=== PATIENT | male | born 1945 | race Caucasian/White ===

== ENCOUNTER → 2016-04-29 | Day surgery (SDC) | payer OTHER ==
[~2016-04-29] VITALS: Ht 172.7 cm; Wt 58.0 kg
[~2016-04-29] MED LIST: ACETAMINOPHEN 325 MG TAB PO PRN; ALBU18002 INH; AMOX875T PO; ATRINS INH; ATRINS NEB; ATROPINE SULFATE 0.1 MG/ML 5ML SYR IV PRN; DXY100 PO; DiphenhydrAMINE HCL 50 MG/ML VIAL ONE; FENTANYL CITRATE INJ 50 MCG/1 ML 2 ML VIAL ONE; GFNSR600 PO; IPRA1AER2 INH; MIDAZOLAM HCL 1 MG/ML 2ML VIAL ONE; MULT-589 PO; ONDANSETRON INJ 2 MG/ML 2 ML VIAL IV PRN; OXGN; PATIENT'S ALLERGY INFO NEEDS ENTERED SCH; PRED10TA PO; PRED20TA PO; PRT40 PO; PRVHFAIN; ROFL1TAB5 PO; SODIUM CHLORIDE 0.9% 1000ML 1,000 ML IV SCH; SODIUM CHLORIDE 0.9% 1000ML 250 ML IV PRN; UMEC1AER; UMEC1AER INH; XPNINS1255 INH
[2016-04-29 07:43] VITALS: BP 152/101; PULSE 82; TEMP 36.5; O2SAT 92; Ht 172.7 cm; Wt 58.0 kg
--- NOTE | 2016-04-29 09:27 | History & Physical Bridge Note ---
H&P Re-Evaluation Bridge Note: I have examined the patient, reviewed the History & Physical and in the interval since the performance of the History & Physical I have noted the following changes of clinical significance: No changes noted
--- NOTE | 2016-04-29 09:39 | Cardiac Catheterization ---
Procedure Note Procedure Date Apr 29, 2016. Pre-Procedure Diagnosis Valvular Disease AUC Score 9 Post-Procedure Diagnosis Normal Coronary Arteries Procedure(s) Performed Coronary Angiography, Left Heart Cath, Right Heart Cath, LV Angiography, Aortography [employer] Dr. Patten Recruitment Officer(s) None Estimated Blood Loss None Medication(s) Versed, Diphenhydramine Summary of Findings Severe aortic stenosis, normal coronaries Hemodynamics Rest Ao: 155/88 Final Ao: 150/89 LV: 200/16 RA: 5 RV: 35/5 PA: 12 PW: 12 Recommendations valve replacement Specimens None Radiation Exposure (mGy) 998 Contrast (mls) 127 Fluids (cc crystalloids) 109 Procedural Complication(s) None Disposition Polisher Hand Holding/Recovery ACC Data Cardiac Status Clinical evaluation leading to the procedure CAD Presntation: Stable angina Anginal Classification: CCS II Heart Failure: No Cardiogenic Shock w/in 24Hrs: No Cardiac Arrest w/in 24Hrs: No Imaging studies past 6 months: Yes Stress studies past 6 months: No Standard Exercise Stress Test: No Stress Echocardiogram: No Stress Testing w/SPECT MPI: No Cardiac CTA: No Coronary Anatomy Dominant: Right Left Main (% Stenosis): Normal LAD (% Stenosis): Normal Circumflex (% Stenosis): Normal RCA (% Stenosis): Normal Left Ventricular Angiography EF (%): 60 Mitral Regurgitation: None Aortography Aortic Regurgitation: None Diagnostic Physician's Name: Lavon Patten, Status: Elective Closure Device Percutaneous Entry Location: Femoral Closure Device: none - manual hold Recommendations: valve replacement
--- NOTE | 2016-04-29 09:41 | Discharge Instructions ---
Discharge Instructions Procedure Procedure Date: Apr 29, 2016. Reason for Visit: Chest Pain Dr Patten To Do. Discharge Discharge Date: Apr 29, 2016. Discharge Diagnosis: aortic stenosis Last Recorded Wt (Kilograms): 58 Anesthesia Post Anesthesia Instructions: If you have had General Anesthesia or IV Sedation: * Do not drive today. * Resume driving when surgeon permits. * Do not make important decisions or sign legal documents today. * Call surgeon for: 1. Temperature elevations greater than 101 degrees F. 2. Uncontrollable pain. 3. Excessive bleeding. 4. Persistent nausea and vomiting. 5. Medication intolerance (nausea, vomiting or rash). * For nausea and vomiting use only clear liquids such as: tea, soda, bouillon until nausea subsides, then gradually increase diet as tolerated. * If you have any concerns or questions, call your surgeon's office. If physician is unavailable and it is an emergency, call 911 or go to the nearest emergency room. Instructions Activity Recommendations: limitations Recommended Home Diet: resume previous diet Provider Instructions ACTIVITY RECOMMENDATIONS: It is common to feel weak and fatigue for a few days. * Do not drive or operate any motorized equipment for the next three days. * Limit stair usage (2 or 3 trips a day only) for the next three days. * Do not lift anything heavier than 10 pounds for the next three days. * Do not engage in vigorous exercise or any sports for the next five days. * You may shower the day after your procedure, but do not immerse the area for three days. Cleanse the site gently with soap and water. SPECIAL CARE INSTRUCTIONS: * You may replace the pressure dressing or band-aid the morning after the procedure. * After your procedure, it is normal to have a small bruise or small lump at the site. Examine your site daily for any change in the bruise or lump, redness, swelling, drainage or numbness. Notify your doctor if any change. BLEEDING: * If there is a small amount of bleeding at the site, lie down and apply firm pressure with a clean cloth for ten minutes. When the bleeding stops, lie quietly keeping the procedure limb straight for six hours. Notify your doctor as soon as possible. * If the bleeding does not stop after ten minutes or if there is a large amount of bleeding or spurting, call 911 immediately. Continue to lie down and hold firm pressure until help arrives. SKIN IRRITATION: * You may experience some redness and/or swelling in the area where radiation was administered. If any skin irritation occurs, please contact your family physician. FOLLOW UP VISIT: Keep any scheduled doctor appointments. Follow Up Rachael Clements Recommendations: Call your doctor if: * Temperature above 101 degrees * Pain not relieved by pain medicine ordered * There is increased drainage or redness from any incision * You have any unanswered questions or concerns. Your Doctors Instructions noted above were prepared by provider Lavon Patten. Patient Signature Section: Patient Instructions Signature Page [place] Patient (or Guardian) Signature/Date: I have read and understand the instructions given to me by my caregivers. Caregiver/RN/Doctor Signature/Date: The above-named patient and/or guardian has received patient instructions on this date. + Original Patient Signature Page (only) stays with chart. Please make copy for patient.
[2016-04-29 09:46] LABS: ISTAT ARTERIAL BLOOD GAS HCO3 28 meq/L (19-24); ISTAT ARTERIAL BLOOD GAS PCO2 42 mmHg (35-46); ISTAT ARTERIAL BLOOD GAS PO2 60 mmHg (80-95); ISTAT ARTERIAL BLOOD GAS pH 7.43 (7.35-7.45); ISTAT CARBON DIOXIDE 29 mEq/l (24-31)
--- NOTE | 2016-04-29 10:12 | CARDIAC CATH REPORT ---
PROCEDURES: 1. Left heart catheterization. 2. Right heart catheterization. 3. Coronary angiography. 4. Left ventriculography. 5. Aortography. HISTORY OF PRESENT ILLNESS: The patient is a 71-year-old with a history of COPD on the basis of smoking and industrial exposure. He has chronic bronchitis and has had at least 2 episodes, 1 requiring hospital admission for this winter due to acute exacerbation of his COPD. He also was found on echocardiography to have severe calcific aortic stenosis. PROCEDURE SUMMARY: The patient was seen and evaluated in the holding area of the stores laborer. After informed consent was obtained, the patient was taken to the cardiac catheterization lab where he was prepped and draped in the usual manner for a right transfemoral approach. Preformed diagnostic catheters were utilized for the coronary angiograms. A multipurpose catheter was utilized to cross the aortic valve after multiple attempts with pigtail catheter were unsuccessful. A hand injection was then performed with the multipurpose catheter for the LV gram. The multipurpose catheter then was switched for a pigtail catheter and an aortogram was performed. Right heart pressures and cardiac outputs were performed with a [place] catheter. Following the procedure due to the patient's body habitus manual hold performed to remove the arterial and venous sheaths. The patient then was returned to the holding area of the stores laborer in stable condition. HEMODYNAMIC DATA: The right atrial pressure is a mean of 5 mmHg, right ventricular pressure is 32/5 mmHg. The pulmonary artery pressure is 28/11 mmHg. The pulmonary capillary wedge pressure is a mean of 12 mmHg. The LV pressure is 191 mmHg. Central aortic pressure is 162/87 mmHg. The estimated mean gradient across the aortic valve is 30.95 mmHg. The estimated aortic valve area is 0.5-0.84 cm2. The cardiac output by thermal dilution is 4.7 liters per minute. LEFT VENTRICULOGRAM: The left ventricle was normal size with normal systolic function during a hand injection. AORTOGRAM: The aortic root and ascending aorta have normal size and morphology. The aortic valve is heavily calcified. CORONARY ANGIOGRAPHY: Selective injections of the left coronary artery revealed the left main trunk to be widely patent. There is a ramus branch from the LAD or left main trunk which is widely patent. The LAD itself extends to the apex of the heart. The LAD is smooth in appearance, widely patent, and within normal limits. The left circumflex artery consists principally of several lateral marginal branches. The left circumflex artery is smooth in appearance, widely patent, and within normal limits. Selective injections of the right coronary artery revealed to be dominant. The right coronary artery is smooth in appearance, widely patent, and within normal limits. SUMMARY: The patient has severe calcific aortic stenosis. The coronary arteries are within normal limits and he has normal LV function. RECOMMENDATIONS: Due to the patient's history of severe underlying lung pathology he is not a candidate for open heart surgery with valve replacement. He may be a candidate for MELANIE and we will have him evaluated.
[2016-04-29 11:35] LABS: ISTAT ARTERIAL BLOOD GAS HCO3 33 meq/L (19-24); ISTAT ARTERIAL BLOOD GAS PCO2 51 mmHg (35-46); ISTAT ARTERIAL BLOOD GAS PO2 < 32 mmHg (80-95); ISTAT ARTERIAL BLOOD GAS pH 7.41 (7.35-7.45); ISTAT CARBON DIOXIDE 34 mEq/l (24-31)
[2016-04-29 13:30] VITALS: BP 158/91; PULSE 80; O2SAT 97
== END | disposition home or self-care (01) ==
LOC: C.CATH 07:08
PROVIDERS: ATTEND Internal Medicine Interventional Cardiology
DX: I35.0 Nonrheumatic aortic (valve) stenosis (principal); J98.4 Other disorders of lung; J44.9 Chronic obstructive pulmonary disease, unspecified; F17.200 Nicotine dependence, unspecified, uncomplicated

== ENCOUNTER 2016-09-21 02:49 | Inpatient (IN) | payer OTHER ==
[2016-09-21] VITALS (11 sets, daily range): BP systolic 103–132; BP diastolic 70–79; PULSE 89–99; TEMP 36.5–37; O2SAT 93–98; Ht 170.2 cm; Wt 57.6 kg
[~2016-09-21] VITALS: Ht 170.2 cm; Wt 57.6 kg
[~2016-09-21 02:49] MED LIST changes: -ACETAMINOPHEN 325 MG TAB PO PRN; -ATRINS INH; -ATROPINE SULFATE 0.1 MG/ML 5ML SYR IV PRN; -DXY100 PO; -DiphenhydrAMINE HCL 50 MG/ML VIAL ONE; -FENTANYL CITRATE INJ 50 MCG/1 ML 2 ML VIAL ONE; -GFNSR600 PO; -IPRA1AER2 INH; -MIDAZOLAM HCL 1 MG/ML 2ML VIAL ONE; -MULT-589 PO; -ONDANSETRON INJ 2 MG/ML 2 ML VIAL IV PRN; -OXGN; -PATIENT'S ALLERGY INFO NEEDS ENTERED SCH; -PRED10TA PO; -PRT40 PO; -PRVHFAIN; -ROFL1TAB5 PO; -SODIUM CHLORIDE 0.9% 1000ML 1,000 ML IV SCH; -SODIUM CHLORIDE 0.9% 1000ML 250 ML IV PRN; -UMEC1AER; -XPNINS1255 INH
[2016-09-21] MEDS ORDERED: NITROGLYCERIN 0.4 MG SL PER TAB CHARGE SL PRN (04:45)
[2016-09-21] MEDS ORDERED: PRVHFAIN (04:59)
[2016-09-21] MEDS ORDERED: UMEC1AER (04:59)
[2016-09-21] MEDS ORDERED: IPRA1AER2 INH (04:59)
[2016-09-21] MEDS ORDERED: TRAMADOL HCL 50 MG TAB PO PRN (05:00)
[2016-09-21] MEDS ORDERED: ONDANSETRON INJ 2 MG/ML 2 ML VIAL IV PRN (05:00)
[2016-09-21] MEDS ORDERED: MoRPHine SULFATE 2 MG/ML CARP IV PRN (05:00)
[2016-09-21] MEDS ORDERED: ROFL1TAB5 PO (05:00)
[2016-09-21] MEDS ORDERED: OXGN (05:00)
[2016-09-21 05:58] LABS: BASO % 0.4 %; BASO ABS # 0.03 K/uL (0-0.2); COMPLETE YES; EOS % 1.1 %; HEMATOCRIT 41.7 % (42-52); IG% 0.3 %; MEAN CORPUSCULAR HEMOGLOBIN 31.4 pg (25-34); MEAN CORPUSCULAR HGB CONC 33.1 g/dl (32-36); MEAN PLATELET VOLUME 9.8 fL (7.4-10.4); MONO % 1.4 %; NEUT % 91.8 %; PLATELET COUNT 239 K/uL (130-400); RED BLOOD COUNT 4.39 M/uL (4.7-6.1); WHITE BLOOD COUNT 7.95 K/uL (4.8-10.8)
[2016-09-21 06:04] LABS: ARTERIAL BLD GAS O2 SATURATION 96.1 % (90-95); ARTERIAL BLOOD GAS BASE EXCESS 1.9 mEq/L (-9-1.8); ARTERIAL BLOOD GAS HCO3 27 mmol/L (19-24); ARTERIAL BLOOD GAS PO2 81 mm/Hg (80-95); ARTERIAL BLOOD GAS pH 7.42 (7.35-7.45)
[2016-09-21] MEDS ORDERED: LEVALBUTEROL/IPRATROPIUM NEB INH STA (06:04)
[2016-09-21 06:05] LABS: ALLEN TEST POS (POS); O2 ADMINISTRATION 4L
[2016-09-21] MEDS ORDERED: DOXYCYCLINE HYCLATE 100 MG CAP PO ONE (06:05)
[2016-09-21] MEDS ORDERED: METHYLPREDNISOLONE IV 40 MG in SYRINGE 0 ML IV STA (06:06)
[2016-09-21] MEDS ORDERED: IPRATROPIUM BROMIDE NEB SOLN 0.02% 2.5 ML VIAL INH STA (06:07)
[2016-09-21] MEDS ORDERED: LEVALBUTEROL 1.25MG/0.5ML NEB INH STA (06:07)
[2016-09-21] MEDS ORDERED: THIAMINE HCL INJ 100 MG in SYRINGE 9 ML IV STA (06:08)
[2016-09-21] MEDS ORDERED: LEVALBUTEROL/IPRATROPIUM NEB INH PRN (06:15)
[2016-09-21] MEDS ORDERED: LORAZEPAM 2 MG/ML 1 ML VIAL IV PRN (06:15)
[2016-09-21] MEDS ORDERED: IPRATROPIUM BROMIDE NEB SOLN 0.02% 2.5 ML VIAL INH PRN (06:15)
[2016-09-21] MEDS ORDERED: LEVALBUTEROL 1.25MG/0.5ML NEB INH PRN (06:15)
[2016-09-21] MEDS ORDERED: GABAPENTIN 600 MG TAB PO STA (06:16)
[2016-09-21 06:22] LABS: PARTIAL THROMBOPLASTIN RATIO 1.4
[2016-09-21 06:29] LABS: BUN/CREATININE RATIO 16.9 (10-20); CALCIUM 8.7 mg/dl (8.5-10.1); CREATININE 0.59 mg/dl (0.60-1.40); MAGNESIUM 2.3 mg/dl (1.8-2.4); POTASSIUM 4.1 mmol/L (3.5-5.1)
[2016-09-21 06:42] LABS: INR 0.9 (0.9-1.1); PROTHROMBIN TIME (PATIENT) 10.1 SECONDS (9.0-12.0)
[2016-09-21 06:56] LABS: THYROID STIMULATING HORMONE 0.316 uIu/ml (0.300-4.500)
[2016-09-21] MEDS: LEVALBUTEROL 1.25MG/0.5ML NEB INH SCH ×3 (07:00→19:10)
[2016-09-21] MEDS: IPRATROPIUM BROMIDE NEB SOLN 0.02% 2.5 ML VIAL INH SCH ×3 (07:00→19:10)
--- NOTE | 2016-09-21 07:04 | DIAGNOSTIC IMAGING REPORT ---
CHEST ONE VIEW PORTABLE CLINICAL HISTORY: sob COMPARISON STUDY: Outside radiograph dated 09/21/2016 FINDINGS: There is underlying pulmonary emphysema. The heart is normal in size. There is no failure. There is no focal pulmonary consolidation. There is a stable area of scarring at the left lung base. No pleural effusions are visualized.[ IMPRESSION: Emphysema. No acute findings. Electronically signed by: Foster Sanches M.D. 09/21/2016 7:03 AM Dictated Date/Time: 09/21/2016 7:03 AM
[2016-09-21] MEDS: GUAIFENESIN 600 MG TABCR PO SCH ×2 (07:46→19:54)
[2016-09-21] MEDS: ROFLUMILAST 500 MCG TAB PO SCH (07:46)
[2016-09-21] MEDS: MULTIVITAMIN TAB PO SCH (07:46)
[2016-09-21] MEDS: ASPIRIN 81 MG ECTAB PO SCH (07:46)
[2016-09-21] MEDS: NICOTINE 14 MG/24 HR TDSY TD SCH (07:47)
--- NOTE | 2016-09-21 08:04 | HISTORY & PHYSICAL EXAMINATION ---
DATE OF ADMISSION: 09/21/2016 PRIMARY CARE DOCTOR: Dr. Dean CHIEF COMPLAINT: Shortness of breath and abnormal troponin. History was obtained from patient and records. HISTORY OF PRESENT ILLNESS: Medical history is significant for chronic hypoxemic respiratory failure 2 to COPD on home O2, ongoing tobacco abuse, daily alcohol intake, bucuspid aortic stenosis as per records, AAA, hx asbestos exposure. In the last week, patient's breathing was acting up, had increasing shortness of breath, dry cough, unable to expectorate and some chest heaviness, nonradiating. Patient was seen at [facility]. Noted to be tachypneic, O2 sats 94/4L Troponin was noted to be 0.40. EKG showed sinus tachycardia, TW flattening in the inferior leads. Possible non-ST elevation MD as per ER MD. Patient wanted to be transferred to a hospital where his [facility] clockmaker practices. Patient was given statin, weight-based Lovenox before leaving [facility]. MEDICAL HISTORY: As above. Normal coronaries on April 2016 cardiac catheterization. 2D echo from May 2016 showed congenital bicuspid aortic valve, severe EF of 55%, mild TR, normal right ventricular systolic function Not a candidate for TAVR as per [place] [facility] [place]Dr. Venu Black). AAA measurement in November 2015; 2.5 x 3 largest dimension. HOME MEDICATIONS: Include; Z-Abel Rescue, Combivent p.r.n. and aspirin daily. ALLERGIES: No known drug allergies. FAMILY HISTORY: Heart disease. PERSONAL AND SOCIAL HISTORY: half pack daily. Daily alcohol intake. 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 REVIEW OF SYSTEMS: As per HPI, all other ROS negative. PHYSICAL EXAMINATION: VITAL SIGNS: Blood pressure was noted to be 111/77 pulse rate 94, respiratory rate 22, temperature 36.5 and sats 94 on 4 liters. GENERAL: Noted to be in minimal respiratory distress. Tremulous SKIN : normal color HEENT: [place] palpebral conjunctivae. Dry mucosa. NECK: No JVD. Supple. CHEST: Decreased breath sounds. Occasional wheeze. HEART: Regular rate and rhythm. Systolic murmur. ABDOMEN: Some distension, nontender. EXTREMITIES: No edema, no tenderness. NEUROLOGIC: No gross focality except for tremors. LABORATORIES: Hemoglobin was noted to be 13.8, hematocrit 41, white cell count 7.9 and platelets 239. Sodium 140, potassium 4.1, chloride 106, CO2 28, BUN 10, creatinine 0.5 and glucose 110. Troponin was 0.423. Chest x-ray as per my interpretaton : COPD. ASSESSMENT: 1. Acute on chronic hypoxemic respiratory failure secondary to chronic obstructive pulmonary disease exacerbation no sepsis 2. troponinemia secondary to above doubt acute coronary syndrome 3. ongoing tobacco abuse 4. hx severe , px not a candidate for TAVR as per [place] [facility] [place] 5. hx AAA 6. Daily alcohol intake. 7. Malnutrition (low BMI) PLAN: PCU, supplemental O2 baseline ABG Doxycycline, nebs, steroids. May need Pulmonary consult if without improvement. DT precautions. nicotine patch Nutrition consult DVT prophylaxis. Lovenox subQ Full code. MTDD
[2016-09-21 08:05] LABS: ALKALINE PHOSPHATASE 71 U/L (45-117); ALT/SGPT 20 U/L (12-78); AST/SGOT 19 U/L (15-37)
[2016-09-21] MEDS: GABAPENTIN 600MG Q6H DOSE PO SCH ×2 (11:12→17:18)
[2016-09-21] MEDS ORDERED: LEVALBUTEROL/IPRATROPIUM NEB INH SCH (12:00)
[2016-09-21 16:24] LABS: CKMB/CK RATIO 2.1 (0-3.0)
--- NOTE | 2016-09-21 17:20 | ECHOCARDIOGRAM REPORT ---
*NOTICE TO RECEIVING DEMOCRAT AGENCY This information is strictly Confidential and protected under [place] law. [place] law prohibits you from making any further disclosure of this information unless further disclosure is expressly permitted by the written consent of the person to whom it pertains or is authorized by law. A general authorization for the release of medical or other information is not sufficient for this purpose. Hospital accepts no responsibility if the information is made available to any other person, INCLUDING THE PATIENT. Interpretation Summary * Name: LEON KENNY Study Date: 09/21/2016 03:53 PM BP: 115/79 mmHg * Patient Location: C.2T\S\S235\S\1 HR: 96 * : 1945 (M/d/yyyy) Gender: Male Height: 67 in * Age: 71 yrs Ethnicity: CA Weight: 125 lb * Ordering Physician: Joanie Troy * Referring Physician: Self, Referred * Performed By: Alla Hart RDCS * * Reason For Study: Chest pain * BSA: 1.7 m2 * The study was technically adequate. * -- Conclusions -- * There is mild concentric left ventricular hypertrophy. * No regional wall motion abnormalities noted. * The left ventricle is hyperdynamic. * The LV Ejection Fraction = >70 %. * The right ventricle is normal in size and function. * The aortic valve is severely calcified. * Visualization is inadequate to allow determination of number of aortic valve leaflets. * Severe valvular aortic stenosis is present. * Grade I diastolic dysfunction, (abnormal relaxation pattern). * Trivial tricuspid regurgitation is present. The TR jet is therefore insufficient to estimate the pulmonary artery systolic pressure. * There is no 2D evidence of pulmonary hypertension. Procedure Details * A complete two-dimensional transthoracic echocardiogram was performed (2D, M-mode, Doppler and color flow Doppler). Left Ventricle * The left ventricle is normal in size. * There is mild concentric left ventricular hypertrophy. * The left ventricle is hyperdynamic. * Ejection Fraction = >70 %. * The left ventricular wall motion is normal. * No regional wall motion abnormalities noted. Right Ventricle * The right ventricle is normal in size and function. * The right ventricular systolic function is normal as assessed by tricuspid annular plane systolic excursion (TAPSE) (normal >1.5 cm). Atria * The left atrial size is normal. * Right atrial size is normal. * There is no evidence of atrial septal defect, but resolution does not allow assessment for a patent foramen ovale. Mitral Valve * The mitral valve is normal. * There is no mitral valve stenosis. * Significant mitral regurgitation is absent. Tricuspid Valve * The tricuspid valve is normal. * There is no tricuspid stenosis. * Significant tricuspid regurgitation is absent. Aortic Valve * The aortic valve is severely calcified. Visualizaiton is inadequate to allow determination of number of aortic valve leaflets. * Severe valvular aortic stenosis. * There is no significant aortic regurgitation. Pulmonic Valve * The pulmonary valve is not well seen, but the Doppler examination is normal without significant regurgitation or stenosis. Great Vessels * The aortic root and proximal ascending aorta are normal sized. Pericardium/Pleural * There is a small anterior /anteroapical loculated pericardial effusion. * There are no echocardiographic indications of cardiac tamponade. * There is no pericardial effusion. Great Vessels * Normal inferior vena cava diameter and respiratory variation suggests normal central venous pressure. * Normal inferior vena cava size and collapsability with sniff indicates a normal right atrial pressure of 3 mmHg Left Ventricular Diastolic Function * Grade I diastolic dysfunction, (abnormal relaxation pattern). MMode 2D Measurements and Calculations IVSd 0.84 cm LVIDd 4.5 cm LVIDs 2.5 cm LVPWd 10 cm IVS/LVPW 0.85 FS 44.0 % EDV(Teich) 90.2 ml ESV(Teich) 22.2 ml EF(Teich) 75.4 % EDV(cubed) 88.3 ml ESV(cubed) 15.5 ml EF(cubed) 82.5 % LV mass(C)d 134.3 grams LV mass(C)dI 81.1 grams/m\S\2 CO(Teich) 6.1 l/min CI(Teich) 3.7 l/min/m\S\2 SV(Teich) 68.0 ml SI(Teich) 41.1 ml/m\S\2 CO(cubed) 6.6 l/min CI(cubed) 4.0 l/min/m\S\2 SV(cubed) 72.8 ml SI(cubed) 44.0 ml/m\S\2 Ao root diam 3.8 cm Ao root area 11.2 cm\S\2 LA dimension 2.1 cm asc Aorta Diam 2.3 cm LA/Ao 0.57 LVOT diam 2.0 cm LVOT area 3.1 cm\S\2 LVAd ap4 25.8 cm\S\2 LVLd ap4 7.8 cm EDV(MOD-sp4) 72.2 ml LVAs ap4 10.2 cm\S\2 LVLs ap4 6.1 cm ESV(MOD-sp4) 16.7 ml EF(MOD-sp4) 76.9 % LVAd ap2 25.6 cm\S\2 LVLd ap2 8.3 cm EDV(MOD-sp2) 69.4 ml LVAs ap2 12.6 cm\S\2 LVLs ap2 6.2 cm ESV(MOD-sp2) 23.7 ml EF(MOD-sp2) 65.9 % CO(MOD-sp4) 5.0 l/min CI(MOD-sp4) 3.0 l/min/m\S\2 SV(MOD-sp4) 55.5 ml SI(MOD-sp4) 33.5 ml/m\S\2 CO(MOD-sp2) 4.1 l/min CI(MOD-sp2) 2.5 l/min/m\S\2 SV(MOD-sp2) 45.7 ml SI(MOD-sp2) 27.6 ml/m\S\2 Doppler Measurements and Calculations MV E max quentin 65.0 cm/sec MV A max quentin 93.1 cm/sec MV E/A 0.70 MV dec time 0.20 sec Ao V2 max 393.3 cm/sec Ao max PG 61.9 mmHg Ao max PG (full) 58.5 mmHg Ao V2 mean 282.9 cm/sec Ao mean PG 36.3 mmHg Ao V2 VTI 75.7 cm TR[place](V,A) 0.72 cm\S\2 [place](V,D) 0.72 cm\S\2 LV V1 max PG 3.4 mmHg LV V1 max 92.1 cm/sec SV(Ao) 848.3 ml SI(Ao) 512.3 ml/m\S\2 PA V2 max 101.8 cm/sec PA max PG 4.1 mmHg PA acc slope 736.1 cm/sec\S\2 PA acc time 0.11 sec TR max quentin 234.8 cm/sec PA pr(Accel) 28.3 mmHg
--- NOTE | 2016-09-21 17:54 | Cardiology Consultation ---
Cardiology Consultation Date of Consultation: Sep 21, 2016 History of Present Illness Reno Redding is a 71 year old male seen in cardiology consultation per the request of Dr. Troy for the evaluation of chest discomfort. 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 Patten. 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 He been seen by cardiothoracic surgery in 09/11/16 however and per the outpatient note he did not describe any chest discomfort at that time. He notes that he has been under a lot of stress at home. 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 Due to the stress at home he has gone back to smoking cigarettes. He was down to 2 cigarettes per day but is now back to at least one half pack per day. Since yesterday he has had increasing cough and during my assessment, a productive cough was observed. Due to concerns of chest discomfort in addition to his COPD, the patient was transferred to this institution's that he could be followed by our cardiology group given his previously established relationship with Dr. Patten of our practice. During my assessment of the patient in room 235-1, he is in no acute distress and denies any chest discomfort at all. He states that since arriving to the emergency room and receiving treatment he is felt improved. An EKG was performed upon admission today and repeated prior to my assessment revealing normal sinus rhythm at 86 bpm with an age-indeterminate septal infarction pattern with poor R-wave progression in leads V1 and V2 and no significant ST changes. Prior outpatient EKG performed 04/14/16 was reviewed and also had poor R-wave progression in V1 and V2 and is unchanged compared to the present tracing. He had a troponin performed at 5:40 AM I was mildly elevated at 0.4-3, repeat at 11:55 AM was 0.328, and an additional level was performed per my request at 1554 and was mildly elevated at 0.27. His CPK and MB level performed at 1554 within normal limits. History Past Medical History: 1. 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 Abdominal aortic ectasia, 2.4 cm in 2013 3. Severe aortic stenosis Past Surgical History: 1. Colonoscopy 2012 2. Transthoracic echocardiogram 3. Cardiac catheterization or May 2016 4. Transesophageal echocardiogram May 2016 Social History: Current smoker, one half pack to one pack per day for 50 years Review Of Systems See above for pertinent positives & negatives. A total of 10 systems reviewed and were otherwise negative. Allergies Coded Allergies: No Known Allergies (Unverified , 09/21/16) Medications Reported Home Medications Medications Dose Route/Sig Max Daily Dose Days Date Category Oxygen Gas 2 Liters NA PRN 09/21/16 Reported Daliresp (Roflumilast) 500 Mcg Tab 1 Tab PO DAILY 90 09/21/16 Reported Anoro Ellipta 62.5-25 Mcg/INH (Umeclidinium-Vilanterol) 1 Aer Aer 09/21/16 Reported Combivent Respimat (Ipratropium-Albuterol) 1 Aer Aer 1 Puffs INH QID 09/21/16 Reported Ventolin Hfa (Albuterol) 60 Puffs/5400 Mcg Aers 09/21/16 Reported Prednisone 20 Mg Tab 2 Tab PO DAILY 04/29/16 Reported Augmentin 875-125 mg (Amoxicillin & Pot Clavulanate) 1 Tab Tab 1 Tab PO BID 04/29/16 Reported Proair Respiclick (Albuterol Sulfate) 108 Mcg/Act Aer 1 Puffs INH Q4H PRN 04/29/16 Reported Anoro Ellipta 62.5-25 Mcg/INH (Umeclidinium-Vilanterol) 1 Aer Aer 1 Puff INH DAILY 04/29/16 Reported Ipratropium [place] 0.5 Mg/2.5 Ml Nebu 1 Vial NEB BID 30 04/29/16 Reported Physical Exam Vital Signs (Last 8hrs): Last 8 Hrs Date Time Temp Pulse Resp B/P (MAP) Pulse Ox O2 Delivery O2 Flow Rate FiO2 09/21/16 16:00 Nasal Cannula 2.0 09/21/16 15:45 92 95 09/21/16 14:17 96 18 97 Nasal Cannula 3.0 09/21/16 12:00 95 Nasal Cannula 3.0 09/21/16 11:10 36.7 89 19 115/79 (91) 93 Nasal Cannula 3.0 General Appearance: Alert and Oriented x3. NAD, chronically ill in appearance Head: Normocephalic Atraumatic. Eyes: PERRLA, EOMI, conjunctiva and sclera clear Neck: Supple. No carotid bruits noted. No JVD. No HJD. Respiratory: Decreased breath sounds bilaterally, no Rales, productive cough Cardiovascular: Reg rate and rhythm. 2/6 systolic murmur Abdomen: Normal bowel sounds, soft nontender. no abdominal bruits. Extremities: No edema, no clubbing or cyanosis. distal pulses 2/4 bilaterally. Neuro: No focal deficits. Psychiatric: Normal affect. Data Last Resulted 09/21/16 05:40 Red Blood Count 4.39, Mean Corpuscular Volume 95.0, Mean Corpuscular Hemoglobin 31.4, Mean Corpuscular Hemoglobin Concent 33.1, Mean Platelet Volume 9.8, Neutrophils (%) (Auto) 91.8, Lymphocytes (%) (Auto) 5.0, Monocytes (%) (Auto) 1.4, Eosinophils (%) (Auto) 1.1, Basophils (%) (Auto) 0.4, Neutrophils # (Auto) 7.30, Lymphocytes # (Auto) 0.40, Monocytes # (Auto) 0.11, Eosinophils # (Auto) 0.09, Basophils # (Auto) 0.03 Last Resulted 09/21/16 05:40 Past 24 Hours Test 09/21/16 05:40 09/21/16 11:55 09/21/16 15:54 Range/Units Prothromb Time International Ratio 0.9 0.9-1.1 Prothrombin Time 10.1 9.0-12.0 SECONDS Troponin I 0.423 *H 0.328 *H 0.270 *H 0-0.045 ng/ml Creatine Kinase MB 1.9 0.5-3.6 ng/ml Creatine Kinase MB Ratio 2.1 0-3.0 Total Creatine Kinase 92 39-308 U/L Chest x-ray reveals emphysema no acute findings EKG tracings as outlined above Echocardiogram performed today and reviewed independently by the undersigned revealed normal left ventricular systolic function with hyperdynamic LVEF greater than 70% and no regional wall motion of her maladies. Severe calcific aortic valve stenosis was present. Assessment & Plan Impression: 71-year-old male 1. Chest discomfort, productive cough, symptoms at present seem due to acute exacerbation of COPD 2. Underlying severe aortic valve stenosis due to bicuspid aortic valve stenosis, transesophageal echocardiogram performed at [facility] in May 2016 confirmed the presence of a bicuspid aortic valve 3. No significant obstructive coronary artery disease by coronary angiography febrile 2017 4. Severe underlying lung disease, ongoing cigarette smoking Plan: At present, I recommend treating patient for acute exacerbation of COPD. His mild troponin I elevation is likely due to supply demand mismatch in the setting of acute exacerbation COPD and underlying severe bicuspid aortic valve stenosis. I reviewed his outpatient chart. There has been a lot of concern that he is high risk for surgical aortic valve replacement due to his underlying lung disease. He has been followed by Dr. Patten and had also been seen by interventional cardiology at the conference a valve clinic at [facility]. He recently seen Dr. Black of cardiothoracic surgery on 09/11/16. He was felt that he is not a candidate for transcatheter aortic valve replacement due to the bicuspid anatomy of the aortic valve. It was felt per the CT surgery note that he would be a reasonably good candidate for minimally invasive aortic valve replacement via right thoracotomy, however the patient was disinclined to have surgery right away because of multiple issues including difficulty at home the patient was also worried about potential of complication due to his underlying lung disease and it was determined at that time to proceed with close follow-up with repeat echocardiogram in 3 months. At present, I'm not convinced that his current hospitalization is due to progression of his valve disease or an acute coronary syndrome and I think we should optimize patient from a lung standpoint. 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 Case was discussed with Dr. Troy.
[2016-09-21] MEDS ORDERED: COUGH DROP (SUGAR FREE) LOZ 24 LOZ/1 BOX ONE (19:50)
[2016-09-21] MEDS: ACETAMINOPHEN 325 MG TAB PO PRN (19:53)
[2016-09-21] MEDS: DOXYCYCLINE HYCLATE 100 MG CAP PO SCH (19:54)
[2016-09-22] VITALS (11 sets, daily range): BP systolic 102–121; BP diastolic 67–74; PULSE 69–101; TEMP 36.4–36.8; O2SAT 92–97
[2016-09-22] MEDS: GABAPENTIN 600MG Q8H DOSE PO SCH ×3 (01:53→17:46)
[2016-09-22] MEDS: LEVALBUTEROL 1.25MG/0.5ML NEB INH SCH ×4 (01:55→19:37)
[2016-09-22] MEDS: IPRATROPIUM BROMIDE NEB SOLN 0.02% 2.5 ML VIAL INH SCH ×4 (01:55→19:37)
[2016-09-22] MEDS: NICOTINE 14 MG/24 HR TDSY TD SCH (07:26)
[2016-09-22] MEDS: MULTIVITAMIN TAB PO SCH (07:26)
[2016-09-22] MEDS: ROFLUMILAST 500 MCG TAB PO SCH (07:26)
[2016-09-22] MEDS: DOXYCYCLINE HYCLATE 100 MG CAP PO SCH ×2 (07:26→21:13)
[2016-09-22] MEDS: ASPIRIN 81 MG ECTAB PO SCH (07:27)
[2016-09-22] MEDS: ENOXAPARIN 30 MG/0.3 ML SYR SQ SCH (07:27)
[2016-09-22] MEDS: GUAIFENESIN 600 MG TABCR PO SCH ×2 (07:27→21:13)
[2016-09-22] MEDS: THIAMINE HCL 100 MG TAB PO SCH (07:28)
--- NOTE | 2016-09-22 10:05 | Cardiology Follow-Up ---
Subjective General Date of Service: Sep 22, 2016. Chief Complaint: follow up chest tightness Pt evaluation today including: conversation w/ patient, physical exam History of Present Illness The patient is a 71 year old male seen in follow up. Patient with mild residual chest tightness ,but improving and cough is better. Allergies Coded Allergies: No Known Allergies (Unverified , 09/21/16) Social History Smoking Status: Current Every Day Smoker Hx Tobacco Use In Past Year?: Yes (1/2 pack per day x > 60 years) Hx Alcohol Use - Type And Amou: Yes (6 pack beer daily) Physical Exam Vital Signs Last Vital Signs Documentation Date Time Temp Pulse Resp B/P (MAP) Pulse Ox O2 Delivery O2 Flow Rate FiO2 09/22/16 08:30 36.4 69 20 102/69 (80) 94 Nasal Cannula 2.0 Physical Exam Constitutional: Level of Distress: NAD Neck: supple Lungs: Auscultation: no wheezing, no rales/crackles, no rhonchi Cardiovascular: Heart Auscultation: RRR, II/ MEMO Abdomen: Bowel Sounds: pertinent finding (soft non tender ) Extremities: no edema Neurologic: Gait & Station: pertinent finding (no focal deficits ) Assessment and Plan Assessment and Plan Impression: 71-year-old male 1. AECOPD 2. Underlying severe aortic valve stenosis due to bicuspid aortic valve stenosis, transesophageal echocardiogram performed at [facility] in May 2016 confirmed the presence of a bicuspid aortic valve 3. No significant obstructive coronary artery disease by coronary angiography febrile 2017 4. Severe underlying lung disease, ongoing cigarette smoking Plan: I do not think this admission changes plan as recommended at time of recent CT surgery visit 2 weeks ago. Severe and underlying lung disease. Planning repeat echo and CT surgery follow up in 3 months. Patient not a candidate for TAVR due to bicuspid AV. Minimally invasive surgical AVR planned, however patient not ready to proceed. Smoking cessation advised by many recent providers. I agree with Dr Black's (CT surgery) opinion that without smoking cessation AVR will likely due little to change his overall health trajectory. DVT proph: sq lovenox. Laboratory Results Last 24 Hours Test 09/21/16 11:55 09/21/16 15:54 Troponin I 0.328 ng/ml 0.270 ng/ml Total Creatine Kinase 92 U/L Creatine Kinase MB 1.9 ng/ml Creatine Kinase MB Ratio 2.1
--- NOTE | 2016-09-22 22:45 | Progress Note ---
Internal Med Progress Note Date of Service: Sep 22, 2016. Provider Documentation: SUBJECTIVE: SOB and cough improved no fever or chills OBJECTIVE: Vital Signs-as noted below Exam: General-no sign of distress Eyes-sclera non icteric ENT-NAD Neck-no JVD Lungs-breath sound diminished, very poor air entry , Heart-regular Abdomen-soft, non tender Extremities-no lower ext edema Neuro-AAO x3, no focal deficit Lab data as noted below. ASSESSMENT & PLAN: ACUTE ON CHRONIC RESPIRATORY FAILURE : due to COPD exacerbation advanced air way disease with ongoing tobacco use cont neb tx oral prednisone Pulmonology eval requested SEVERE AORTIC STENOSIS : bicuspid valve , with severe not a candidate for TAVR had recent follow up at [facility] pt's respiratory status needs to be optimized with smoking cessation prior to consider Aortic valve replacement ECHO The left ventricle is hyperdynamic. The LV Ejection Fraction = >70 %. The right ventricle is normal in size and function. The aortic valve is severely calcified. Visualization is inadequate to allow determination of number of aortic valve leaflets. Severe valvular aortic stenosis is present. Grade I diastolic dysfunction, (abnormal relaxation pattern). Cardiology following , appreciate input ELEVATED TROPONIN : possible demand ischemia , is setting of hypoxia, COPD exacerbation with severe valvular heart disease no evidence of ACS ; no wall motion abnormality noted in ECHO cardiology following FULL CODE DVT PROPHYLAXIS sub q heparin DISPOSITION discharge home when medically stable Vital Signs: Date Time Temp Pulse Resp B/P (MAP) Pulse Ox O2 Delivery O2 Flow Rate FiO2 09/23/16 00:00 95 Nasal Cannula 2.0 09/23/16 00:00 36.4 82 117/79 (92) 95 Nasal Cannula 2.0 09/22/16 20:00 97 Nasal Cannula 2.0 09/22/16 19:50 36.8 90 18 107/69 (82) 97 Room Air 09/22/16 19:37 86 18 95 Nasal Cannula 2.0 09/22/16 16:03 Nasal Cannula 2.0 09/22/16 15:18 36.7 101 22 108/72 (84) 92 Room Air 09/22/16 13:46 91 18 94 Nasal Cannula 2.0 09/22/16 12:18 36.6 77 20 103/67 (79) 93 Nasal Cannula 2.0 09/22/16 12:03 Nasal Cannula 2.0 09/22/16 08:30 36.4 69 20 102/69 (80) 94 Nasal Cannula 2.0 09/22/16 08:05 Nasal Cannula 2.0 09/22/16 07:16 83 18 93 Nasal Cannula 2.0 09/22/16 04:30 36.5 70 18 109/72 (84) 96 Nasal Cannula 09/22/16 04:00 Nasal Cannula 2.0 09/22/16 01:55 81 18 94 Nasal Cannula 2.0
[2016-09-23] VITALS (14 sets, daily range): BP systolic 115–130; BP diastolic 78–85; PULSE 67–94; TEMP 36.4–36.8; O2SAT 92–97
[2016-09-23] MEDS: LEVALBUTEROL 1.25MG/0.5ML NEB INH SCH ×4 (02:00→20:09)
[2016-09-23] MEDS: IPRATROPIUM BROMIDE NEB SOLN 0.02% 2.5 ML VIAL INH SCH ×4 (02:00→20:09)
[2016-09-23] MEDS: GABAPENTIN 600MG Q12H DOSE PO SCH ×2 (06:01→20:34)
[2016-09-23] MEDS: DOXYCYCLINE HYCLATE 100 MG CAP PO SCH ×2 (08:29→20:34)
[2016-09-23] MEDS: NICOTINE 14 MG/24 HR TDSY TD SCH (08:30)
[2016-09-23] MEDS: ROFLUMILAST 500 MCG TAB PO SCH (08:30)
[2016-09-23] MEDS: ENOXAPARIN 30 MG/0.3 ML SYR SQ SCH (08:30)
[2016-09-23] MEDS: THIAMINE HCL 100 MG TAB PO SCH (08:31)
[2016-09-23] MEDS: ASPIRIN 81 MG ECTAB PO SCH (08:31)
[2016-09-23] MEDS: MULTIVITAMIN TAB PO SCH (08:31)
[2016-09-23] MEDS: GUAIFENESIN 600 MG TABCR PO SCH ×2 (08:31→20:34)
--- NOTE | 2016-09-23 16:13 | Cardiology Follow-Up ---
Subjective General Date of Service: Sep 23, 2016. Chief Complaint: follow up chest tightness Pt evaluation today including: conversation w/ patient, physical exam History of Present Illness The patient is a 71 year old male seen in follow up. Patient still has cough but improving. Allergies Coded Allergies: No Known Allergies (Unverified , 09/21/16) Social History Smoking Status: Current Every Day Smoker Hx Tobacco Use In Past Year?: Yes (1/2 pack per day x > 60 years) Hx Alcohol Use - Type And Amou: Yes (6 pack beer daily) Physical Exam Vital Signs Last Vital Signs Documentation Date Time Temp Pulse Resp B/P (MAP) Pulse Ox O2 Delivery O2 Flow Rate FiO2 09/23/16 15:22 36.8 87 22 118/83 (95) 93 Room Air 09/23/16 14:06 2.0 Physical Exam Constitutional: Level of Distress: NAD Neck: supple Lungs: Auscultation: no wheezing, no rales/crackles, no rhonchi Cardiovascular: Heart Auscultation: RRR, II/ MEMO Abdomen: Bowel Sounds: pertinent finding (soft non tender ) Extremities: no edema Neurologic: Gait & Station: pertinent finding (no focal deficits ) Assessment and Plan Assessment and Plan Impression: 71-year-old male 1. AECOPD 2. Underlying severe aortic valve stenosis due to bicuspid aortic valve stenosis, transesophageal echocardiogram performed at [facility] in May 2016 confirmed the presence of a bicuspid aortic valve 3. No significant obstructive coronary artery disease by coronary angiography febrile 2017 4. Severe underlying lung disease, ongoing cigarette smoking Plan: Continue current therapy. Need to make sure he has inhaled bronchodilators as outpatient as MDI or nebs. DVT proph: sq lovenox.
--- NOTE | 2016-09-23 18:15 | Progress Note ---
Medicine Progress Note Date & Time of Visit: Sep 23, 2016 at 18:10. Subjective patient seen resting in bed, comfortable still has dry cough, less today no dyspnea denies chest pain, dizziness, palpitations no tremors, anxiety, sweats no other symptoms Objective Last 8 Hrs Date Time Temp Pulse Resp B/P (MAP) Pulse Ox O2 Delivery O2 Flow Rate FiO2 09/23/16 16:00 93 Room Air 09/23/16 15:22 36.8 87 22 118/83 (95) 93 Room Air 09/23/16 14:06 88 18 92 Nasal Cannula 2.0 09/23/16 12:00 Nasal Cannula 2.0 09/23/16 11:38 36.6 78 19 120/79 (93) 93 Room Air Physical Exam: General-oriented x 3, not in distress, speaks in sentences with no effort Head- atraumatic Eyes- EOMI, anicteric ENT- oropharynx clear Neck- supple, no JVD, no adenopathy, no thyromegaly Lungs- clear breath sounds bilaterally Heart- regular rhythm; no murmur, normal rate Abdomen- normal bowel sounds, soft, nontender Extremities- no pretibial edema, no calf tenderness; peripheral pulses intact Neuro- alert, oriented x 3; no gross focal deficit Skin- warm & dry Assessment & Plan ACUTE ON CHRONIC RESPIRATORY FAILURE due to COPD exacerbation - patient still smokes - improving - continue Nebs q6h, Prednisone, Doxycycline advised re: smoking cessation SEVERE AORTIC STENOSIS : bicuspid valve , with severe not a candidate for TAVR had recent follow up at [facility] pt's respiratory status needs to be optimized with smoking cessation prior to consider Aortic valve replacement ECHO The left ventricle is hyperdynamic. The LV Ejection Fraction = >70 %. The right ventricle is normal in size and function. The aortic valve is severely calcified. Visualization is inadequate to allow determination of number of aortic valve leaflets. Severe valvular aortic stenosis is present. Grade I diastolic dysfunction, (abnormal relaxation pattern). Cardiology on board No further interventions at this time ELEVATED TROPONIN : possible demand ischemia , is setting of hypoxia, COPD exacerbation with severe valvular heart disease no evidence of ACS ; no wall motion abnormality noted in ECHO No further interventions at this time ALCOHOLISM on Gabapentin protocol no signs of active withdrawal symptoms monitor FULL CODE DVT PROPHYLAXIS sub q heparin DISPOSITION possible d/c home tomorrow Current Inpatient Medications: Current Inpatient Medications Medications (Trade) Dose Ordered Sig/Monet Route Start Time Stop Time Status Last Admin Dose Admin Acetaminophen (Tylenol Tab) 650 mg Q4H PRN PO 09/21/16 04:45 10/21/16 04:44 09/21/16 19:53 650 MG Nitroglycerin (Nitrostat Tab) 0.4 mg UD PRN SL 09/21/16 04:45 10/21/16 04:44 Morphine Sulfate (MoRPHine SULFATE INJ) 4 mg Q3H PRN IV 09/21/16 05:00 10/05/16 04:59 Tramadol HCl (Ultram Tab) 25 mg Q6H PRN PO 09/21/16 05:00 10/21/16 04:59 Ondansetron HCl (Zofran Inj) 4 mg Q6H PRN IV 09/21/16 05:00 10/21/16 04:59 Prednisone (PredniSONE TAB) 40 mg DAILY PO 09/22/16 09:00 09/27/16 08:59 09/23/16 08:31 40 MG Ipratropium [place] (Atrovent 0.02% 0.5MG/2.5ML Neb) 0.5 mg Q6R INH 09/21/16 09:00 10/21/16 08:59 09/23/16 14:06 0.5 MG Levalbuterol (Xopenex 1.25MG/ 0.5ML Neb) 1.25 mg Q6R INH 09/21/16 09:00 10/21/16 08:59 09/23/16 14:06 1.25 MG Ipratropium [place] (Atrovent 0.02% 0.5MG/2.5ML Neb) 0.5 mg Q4H PRN INH 09/21/16 06:15 10/21/16 06:14 Levalbuterol (Xopenex 1.25MG/ 0.5ML Neb) 1.25 mg Q4H PRN INH 09/21/16 06:15 10/21/16 06:14 Doxycycline Hyclate (Vibramycin Cap) 100 mg BID PO 09/21/16 21:00 09/28/16 20:59 09/23/16 08:29 100 MG Guaifenesin (Mucinex Contr Rel Tab) 600 mg Q12 PO 09/21/16 09:00 10/21/16 08:59 09/23/16 08:31 600 MG Roflumilast (Daliresp Tab) 500 mcg DAILY PO 09/21/16 09:00 10/21/16 08:59 09/23/16 08:30 500 MCG Lorazepam (Ativan Inj) PRN Dosing -Active Protocol Q1H PRN IV 09/21/16 06:15 10/21/16 06:14 09/22/16 13:01 1 MG Aspirin (Ecotrin Tab) 81 mg QAM PO 09/21/16 09:00 10/21/16 08:59 09/23/16 08:31 81 MG Thiamine HCl (Vitamin B-1 Tab) 100 mg QAM PO 09/22/16 09:00 10/22/16 08:59 09/23/16 08:31 100 MG Multivitamins (Multivitamin Tab) 1 tab QAM PO 09/21/16 09:00 10/21/16 08:59 09/23/16 08:31 1 TAB Folic Acid (Folvite Tab) 1 mg QAM PO 09/21/16 09:00 10/21/16 08:59 09/23/16 08:30 1 MG Gabapentin (Neurontin Tab) 600 mg Q24H PO 09/24/16 18:00 09/24/16 18:01 Enoxaparin Sodium (Lovenox Inj) 30 mg DAILY SQ 09/22/16 09:00 10/22/16 08:59 09/23/16 08:30 30 MG Nicotine (Nicoderm Cq 14MG Patch) 1 patch QAM TD 09/21/16 09:00 10/21/16 08:59 09/23/16 08:30 1 PATCH Miscellaneous (Remove Nicoderm Patch) 1 ea HS N/A 09/21/16 21:00 10/21/16 20:59 09/22/16 21:13 1 EA
[2016-09-23] MEDS: ACETAMINOPHEN 325 MG TAB PO PRN (23:08)
[2016-09-24] VITALS (12 sets, daily range): BP systolic 120–146; BP diastolic 72–84; PULSE 69–92; TEMP 36.5–36.7; O2SAT 91–98
[2016-09-24] MEDS: IPRATROPIUM BROMIDE NEB SOLN 0.02% 2.5 ML VIAL INH SCH ×4 (01:44→19:02)
[2016-09-24] MEDS: LEVALBUTEROL 1.25MG/0.5ML NEB INH SCH ×4 (01:44→19:02)
[2016-09-24 07:15] LABS: CREATININE 0.66 mg/dl (0.60-1.40)
[2016-09-24] MEDS: MULTIVITAMIN TAB PO SCH (09:28)
[2016-09-24] MEDS: ASPIRIN 81 MG ECTAB PO SCH (09:28)
[2016-09-24] MEDS: GUAIFENESIN 600 MG TABCR PO SCH ×2 (09:28→20:27)
[2016-09-24] MEDS: THIAMINE HCL 100 MG TAB PO SCH (09:28)
[2016-09-24] MEDS: ROFLUMILAST 500 MCG TAB PO SCH (09:29)
[2016-09-24] MEDS: DOXYCYCLINE HYCLATE 100 MG CAP PO SCH ×2 (09:29→20:30)
[2016-09-24] MEDS: NICOTINE 14 MG/24 HR TDSY TD SCH (09:30)
[2016-09-24] MEDS: ENOXAPARIN 30 MG/0.3 ML SYR SQ SCH (09:30)
[2016-09-24] MEDS ORDERED: PANTOprazole INJ 40 MG in SYRINGE 0 ML IV SCH (10:00)
[2016-09-24] MEDS: ALUMINUM/MAGNESIUM SUSP 30 ML UDC PO PRN ×2 (10:04→20:29)
[2016-09-24 10:50] LABS: CKMB/CK RATIO 2.2 (0-3.0)
--- NOTE | 2016-09-24 13:50 | Progress Note ---
Medicine Progress Note Date & Time of Visit: Sep 24, 2016 at 13:45. Subjective patient seen resting in bed, comfortable states he had a big meal yesterday, then started to cough hard, persistent, the developed lower rib/epigastric pain, worse with coughing and movement no shortness of breath, dizziness, nausea no dyspnea today no other symptoms given Nitro no relief given Maalox, Protonix, Morphine, pain much better now Objective Last 8 Hrs Date Time Temp Pulse Resp B/P (MAP) Pulse Ox O2 Delivery O2 Flow Rate FiO2 09/24/16 11:48 36.6 81 28 128/84 (99) 92 Nasal Cannula 2.0 09/24/16 07:21 36.5 79 20 146/72 (96) 95 Nasal Cannula 2.0 09/24/16 06:59 72 16 98 Nasal Cannula 2.0 Physical Exam: General-oriented x 3, not in distress, speaks in sentences with no effort Eyes- anicteric Neck- supple, no JVD Lungs- clear breath sounds, no rales/wheezes Heart- regular rhythm; no murmur, normal rate Abdomen- normal bowel sounds, soft, nontender Extremities- no pretibial edema, no calf tenderness; peripheral pulses intact Neuro- alert, oriented x 3; no gross focal deficit Skin- warm & dry Laboratory Results: Last 24 Hours Test 09/24/16 05:59 09/24/16 10:12 Creatinine 0.66 mg/dl Est Creatinine Clear Calc Drug Dose 85.2 ml/min Estimated GFR () 114.3 Estimated GFR (Non- 98.6 Total Creatine Kinase 46 U/L Creatine Kinase MB 1.0 ng/ml Creatine Kinase MB Ratio 2.2 Troponin I 0.093 ng/ml Assessment & Plan ACUTE ON CHRONIC RESPIRATORY FAILURE - due to COPD exacerbation - patient still smokes - improving daily - continue Nebs q6h, lower Prednisone- then taper, Doxycycline advised re: smoking cessation LOWER RIB, EPIGASTRIC DISCOMFORT - may have started with Reflux, triggering cough then rib pain - Protonix daily PRN Tessalon perles PRN Tramadol SEVERE AORTIC STENOSIS : - bicuspid valve , with severe not a candidate for TAVR had recent follow up at [facility] pt's respiratory status needs to be optimized with smoking cessation prior to consider Aortic valve replacement ECHO The left ventricle is hyperdynamic. The LV Ejection Fraction = >70 %. The right ventricle is normal in size and function. The aortic valve is severely calcified. Visualization is inadequate to allow determination of number of aortic valve leaflets. Severe valvular aortic stenosis is present. Grade I diastolic dysfunction, (abnormal relaxation pattern). Cardiology on board No further interventions at this time ELEVATED TROPONIN : possible demand ischemia , is setting of hypoxia, COPD exacerbation with severe valvular heart disease no evidence of ACS ; no wall motion abnormality noted in ECHO No further interventions at this time ALCOHOLISM on Gabapentin protocol no signs of active withdrawal symptoms monitor FULL CODE DVT proph Lovenox DISPOSITION possible d/c home tomorrow 2 step exercise ordered Current Inpatient Medications: Current Inpatient Medications Medications (Trade) Dose Ordered Sig/Monet Route Start Time Stop Time Status Last Admin Dose Admin Acetaminophen (Tylenol Tab) 650 mg Q4H PRN PO 09/21/16 04:45 10/21/16 04:44 09/23/16 23:08 650 MG Nitroglycerin (Nitrostat Tab) 0.4 mg UD PRN SL 09/21/16 04:45 10/21/16 04:44 09/24/16 09:13 0.4 MG Morphine Sulfate (MoRPHine SULFATE INJ) 4 mg Q3H PRN IV 09/21/16 05:00 10/05/16 04:59 09/24/16 09:25 4 MG Tramadol HCl (Ultram Tab) 25 mg Q6H PRN PO 09/21/16 05:00 10/21/16 04:59 Ondansetron HCl (Zofran Inj) 4 mg Q6H PRN IV 09/21/16 05:00 10/21/16 04:59 Prednisone (PredniSONE TAB) 40 mg DAILY PO 09/22/16 09:00 09/27/16 08:59 09/24/16 09:28 40 MG Ipratropium [place] (Atrovent 0.02% 0.5MG/2.5ML Neb) 0.5 mg Q6R INH 09/21/16 09:00 10/21/16 08:59 09/24/16 06:59 0.5 MG Levalbuterol (Xopenex 1.25MG/ 0.5ML Neb) 1.25 mg Q6R INH 09/21/16 09:00 10/21/16 08:59 09/24/16 06:59 1.25 MG Ipratropium [place] (Atrovent 0.02% 0.5MG/2.5ML Neb) 0.5 mg Q4H PRN INH 09/21/16 06:15 10/21/16 06:14 Levalbuterol (Xopenex 1.25MG/ 0.5ML Neb) 1.25 mg Q4H PRN INH 09/21/16 06:15 10/21/16 06:14 Doxycycline Hyclate (Vibramycin Cap) 100 mg BID PO 09/21/16 21:00 09/28/16 20:59 09/24/16 09:29 100 MG Guaifenesin (Mucinex Contr Rel Tab) 600 mg Q12 PO 09/21/16 09:00 10/21/16 08:59 09/24/16 09:28 600 MG Roflumilast (Daliresp Tab) 500 mcg DAILY PO 09/21/16 09:00 10/21/16 08:59 09/24/16 09:29 500 MCG Lorazepam (Ativan Inj) PRN Dosing -Active Protocol Q1H PRN IV 09/21/16 06:15 10/21/16 06:14 09/22/16 13:01 1 MG Aspirin (Ecotrin Tab) 81 mg QAM PO 09/21/16 09:00 10/21/16 08:59 09/24/16 09:28 81 MG Thiamine HCl (Vitamin B-1 Tab) 100 mg QAM PO 09/22/16 09:00 10/22/16 08:59 09/24/16 09:28 100 MG Multivitamins (Multivitamin Tab) 1 tab QAM PO 09/21/16 09:00 10/21/16 08:59 09/24/16 09:28 1 TAB Folic Acid (Folvite Tab) 1 mg QAM PO 09/21/16 09:00 10/21/16 08:59 09/24/16 09:29 1 MG Gabapentin (Neurontin Tab) 600 mg Q24H PO 09/24/16 18:00 09/24/16 18:01 Enoxaparin Sodium (Lovenox Inj) 30 mg DAILY SQ 09/22/16 09:00 10/22/16 08:59 09/24/16 09:30 30 MG Nicotine (Nicoderm Cq 14MG Patch) 1 patch QAM TD 09/21/16 09:00 10/21/16 08:59 09/24/16 09:30 1 PATCH Miscellaneous (Remove Nicoderm Patch) 1 ea HS N/A 09/21/16 21:00 10/21/16 20:59 09/23/16 20:35 1 EA Al Hydroxide/Mg Hydroxide (Maalox Susp) 30 ml Q6H PRN PO 09/24/16 10:00 10/24/16 09:59 09/24/16 10:04 30 ML
--- NOTE | 2016-09-24 14:19 | Cardiology Follow-Up ---
Subjective General Date of Service: Sep 24, 2016. Chief Complaint: follow up chest tightness Pt evaluation today including: conversation w/ patient, physical exam History of Present Illness The patient is a 71 year old male seen in follow-up. Patient states his cough is perhaps improving a little bit. He is currently undergoing a nebulizer treatment and is feeling improved. Telemetry reveals stable sinus rhythm. Allergies Coded Allergies: No Known Allergies (Unverified , 09/21/16) Social History Smoking Status: Current Every Day Smoker Hx Tobacco Use In Past Year?: Yes (1/2 pack per day x > 60 years) Hx Alcohol Use - Type And Amou: Yes (6 pack beer daily) Physical Exam Vital Signs Last Vital Signs Documentation Date Time Temp Pulse Resp B/P (MAP) Pulse Ox O2 Delivery O2 Flow Rate FiO2 09/24/16 11:48 36.6 81 28 128/84 (99) 92 Nasal Cannula 2.0 Physical Exam Constitutional: Level of Distress: NAD Neck: supple Lungs: Auscultation: no wheezing, no rales/crackles, no rhonchi Cardiovascular: Heart Auscultation: RRR, II/ MEMO Abdomen: Bowel Sounds: pertinent finding (soft non tender ) Extremities: no edema Neurologic: Gait & Station: pertinent finding (no focal deficits ) Assessment and Plan Assessment and Plan Impression: 71-year-old male 1. AECOPD 2. Underlying severe aortic valve stenosis due to bicuspid aortic valve stenosis, transesophageal echocardiogram performed at [facility] [place] in May 2016 confirmed the presence of a bicuspid aortic valve 3. No significant obstructive coronary artery disease by coronary angiography febrile 2016 4. Severe underlying lung disease, ongoing cigarette smoking Plan: Continue current therapy. Need to make sure he has inhaled bronchodilators as outpatient as MDI or nebs. DVT proph: sq lovenox. Laboratory Results Last 24 Hours Test 09/24/16 05:59 09/24/16 10:12 Creatinine 0.66 mg/dl Est Creatinine Clear Calc Drug Dose 85.2 ml/min Estimated GFR () 114.3 Estimated GFR (Non- 98.6 Total Creatine Kinase 46 U/L Creatine Kinase MB 1.0 ng/ml Creatine Kinase MB Ratio 2.2 Troponin I 0.093 ng/ml
[2016-09-24] MEDS: BENZONATATE 100MG CAP PO PRN (15:23)
[2016-09-24] MEDS ORDERED: GABAPENTIN 600MG Q24H DOSE PO SCH (18:00)
[2016-09-25] VITALS (10 sets, daily range): BP systolic 128–148; BP diastolic 77–90; PULSE 74–83; TEMP 36.6–36.7; O2SAT 92–98
[2016-09-25] MEDS: LEVALBUTEROL 1.25MG/0.5ML NEB INH SCH ×4 (02:30→14:55)
[2016-09-25] MEDS: IPRATROPIUM BROMIDE NEB SOLN 0.02% 2.5 ML VIAL INH SCH ×4 (02:30→14:55)
[2016-09-25] MEDS: BENZONATATE 100MG CAP PO PRN ×2 (04:03→07:18)
[2016-09-25] MEDS: GUAIFENESIN 600 MG TABCR PO SCH (07:16)
[2016-09-25] MEDS: DOXYCYCLINE HYCLATE 100 MG CAP PO SCH (07:16)
[2016-09-25] MEDS: MULTIVITAMIN TAB PO SCH (07:16)
[2016-09-25] MEDS: ASPIRIN 81 MG ECTAB PO SCH (07:16)
[2016-09-25] MEDS: THIAMINE HCL 100 MG TAB PO SCH (07:17)
[2016-09-25] MEDS: ROFLUMILAST 500 MCG TAB PO SCH (07:17)
[2016-09-25] MEDS: NICOTINE 14 MG/24 HR TDSY TD SCH (07:18)
[2016-09-25] MEDS: ENOXAPARIN 30 MG/0.3 ML SYR SQ SCH (07:18)
[2016-09-25] MEDS: ALUMINUM/MAGNESIUM SUSP 30 ML UDC PO PRN (07:20)
[2016-09-25] MEDS ORDERED: PANTOprazole SOD 40 MG TAB PO SCH (09:00)
--- NOTE | 2016-09-25 10:49 | Cardiology Follow-Up ---
Subjective General Date of Service: Sep 25, 2016. Chief Complaint: follow up chest tightness Pt evaluation today including: conversation w/ patient, physical exam History of Present Illness The patient is a 71 year old male seen in follow up. Patient states cough is improved. Allergies Coded Allergies: No Known Allergies (Unverified , 09/21/16) Social History Smoking Status: Current Every Day Smoker Hx Tobacco Use In Past Year?: Yes (1/2 pack per day x > 60 years) Hx Alcohol Use - Type And Amou: Yes (6 pack beer daily) Physical Exam Vital Signs Last Vital Signs Documentation Date Time Temp Pulse Resp B/P (MAP) Pulse Ox O2 Delivery O2 Flow Rate FiO2 09/25/16 07:27 36.6 74 20 131/82 (98) 92 Room Air 09/24/16 14:15 2.0 Physical Exam Constitutional: Level of Distress: NAD Neck: supple Lungs: Auscultation: no wheezing, no rales/crackles, no rhonchi Cardiovascular: Heart Auscultation: RRR, II/ MEMO Abdomen: Bowel Sounds: pertinent finding (soft non tender ) Extremities: no edema Neurologic: Gait & Station: pertinent finding (no focal deficits ) Assessment and Plan Assessment and Plan Impression: 71-year-old male 1. AECOPD 2. Underlying severe aortic valve stenosis due to bicuspid aortic valve stenosis, transesophageal echocardiogram performed [place] [facility] confirmed the presence of a bicuspid aortic valve 3. No significant obstructive coronary artery disease by coronary angiography febrile 2017 4. Severe underlying lung disease, ongoing cigarette smoking Plan: Continue current therapy. Need to make sure he has inhaled bronchodilators as outpatient as MDI or nebs. Had seen Dr Black of [facility] surgery in Aug, 2016 and plan had been repeat outpt echo and CT surg follow up at at 3 month interval. Stable for DC from my standpoint. Pt is aware quitting smoking would be in his best interest. DVT proph: sq lovenox.
--- NOTE | 2016-09-25 14:25 | Progress Note ---
Medicine Progress Note Date & Time of Visit: Sep 25, 2016 at 14:21. Subjective patient seen resting in bed, comfortable states he feels fine overall no abdominal or chest pain no dyspnea ambulates with no problems, o2 sat > 90% after ambulating no other symptoms states he is ready and would like to be discharged today no other symptoms Objective Last 8 Hrs Date Time Temp Pulse Resp B/P (MAP) Pulse Ox O2 Delivery O2 Flow Rate FiO2 09/25/16 12:00 Room Air 09/25/16 11:25 36.6 83 16 128/77 (94) 92 Room Air 09/25/16 08:00 94 Room Air 09/25/16 07:27 36.6 74 20 131/82 (98) 92 Room Air 09/25/16 07:00 79 16 93 Room Air Physical Exam: General-oriented x 3, not in distress, speaks in sentences with no effort Eyes- anicteric Neck- no JVD Lungs- clear breath sounds, no rales/wheezes Heart- regular rhythm; no murmur, normal rate Abdomen- normal bowel sounds, soft, nontender Extremities- no pretibial edema, no calf tenderness Neuro- alert, oriented x 3; no gross focal deficit Skin- warm & dry Assessment & Plan ACUTE ON CHRONIC RESPIRATORY FAILURE - due to COPD exacerbation - patient still smokes - improving daily - given Nebs q6h, lower Prednisone- then taper, Doxycycline advised re: smoking cessation - discharge plan: Doxycycline po x 2 more days Prednisone taper, starting with 30mg daily Combivent TID until seen by PCP Nebs PRN continue Anoro/Ellipta - PCP ff up early next week LOWER RIB, EPIGASTRIC DISCOMFORT - may have started with Reflux, triggering cough then rib pain - Protonix daily PRN Tessalon perles PRN Tramadol - Protonix 40mg x 2 weeks monitor as outpatient SEVERE AORTIC STENOSIS - bicuspid valve , with severe not a candidate for TAVR had recent follow up at [facility] pt's respiratory status needs to be optimized with smoking cessation prior to consider Aortic valve replacement ECHO The left ventricle is hyperdynamic. The LV Ejection Fraction = >70 %. The right ventricle is normal in size and function. The aortic valve is severely calcified. Visualization is inadequate to allow determination of number of aortic valve leaflets. Severe valvular aortic stenosis is present. Grade I diastolic dysfunction, (abnormal relaxation pattern). Cardiology on board No further interventions at this time - continue outpatient follow up ELEVATED TROPONIN : possible demand ischemia , in the setting of hypoxia, COPD exacerbation with severe valvular heart disease no evidence of ACS ; no wall motion abnormality noted in ECHO No further interventions at this time ALCOHOLISM placed on Gabapentin protocol no signs of active withdrawal symptoms monitor FULL CODE DVT proph Lovenox given DISPOSITION d/c home today ff up with PCP in 1 week ff up with [facility] closely as outpatient Current Inpatient Medications: Current Inpatient Medications Medications (Trade) Dose Ordered Sig/Monet Route Start Time Stop Time Status Last Admin Dose Admin Acetaminophen (Tylenol Tab) 650 mg Q4H PRN PO 09/21/16 04:45 10/21/16 04:44 09/23/16 23:08 650 MG Tramadol HCl (Ultram Tab) 25 mg Q6H PRN PO 09/21/16 05:00 10/21/16 04:59 Ondansetron HCl (Zofran Inj) 4 mg Q6H PRN IV 09/21/16 05:00 10/21/16 04:59 Ipratropium [place] (Atrovent 0.02% 0.5MG/2.5ML Neb) 0.5 mg Q6R INH 09/21/16 09:00 10/21/16 08:59 09/25/16 07:00 0.5 MG Levalbuterol (Xopenex 1.25MG/ 0.5ML Neb) 1.25 mg Q6R INH 09/21/16 09:00 10/21/16 08:59 09/25/16 07:00 1.25 MG Ipratropium [place] (Atrovent 0.02% 0.5MG/2.5ML Neb) 0.5 mg Q4H PRN INH 09/21/16 06:15 10/21/16 06:14 Levalbuterol (Xopenex 1.25MG/ 0.5ML Neb) 1.25 mg Q4H PRN INH 09/21/16 06:15 10/21/16 06:14 Doxycycline Hyclate (Vibramycin Cap) 100 mg BID PO 09/21/16 21:00 09/28/16 20:59 09/25/16 07:16 100 MG Guaifenesin (Mucinex Contr Rel Tab) 600 mg Q12 PO 09/21/16 09:00 10/21/16 08:59 09/25/16 07:16 600 MG Roflumilast (Daliresp Tab) 500 mcg DAILY PO 09/21/16 09:00 10/21/16 08:59 09/25/16 07:17 500 MCG Lorazepam (Ativan Inj) PRN Dosing -Active Protocol Q1H PRN IV 09/21/16 06:15 10/21/16 06:14 09/22/16 13:01 1 MG Aspirin (Ecotrin Tab) 81 mg QAM PO 09/21/16 09:00 10/21/16 08:59 09/25/16 07:16 81 MG Thiamine HCl (Vitamin B-1 Tab) 100 mg QAM PO 09/22/16 09:00 10/22/16 08:59 09/25/16 07:17 100 MG Multivitamins (Multivitamin Tab) 1 tab QAM PO 09/21/16 09:00 10/21/16 08:59 09/25/16 07:16 1 TAB Folic Acid (Folvite Tab) 1 mg QAM PO 09/21/16 09:00 10/21/16 08:59 09/25/16 07:16 1 MG Enoxaparin Sodium (Lovenox Inj) 30 mg DAILY SQ 09/22/16 09:00 10/22/16 08:59 09/25/16 07:18 30 MG Nicotine (Nicoderm Cq 14MG Patch) 1 patch QAM TD 09/21/16 09:00 10/21/16 08:59 09/25/16 07:18 1 PATCH Miscellaneous (Remove Nicoderm Patch) 1 ea HS N/A 09/21/16 21:00 10/21/16 20:59 09/24/16 20:27 1 EA Al Hydroxide/Mg Hydroxide (Maalox Susp) 30 ml Q6H PRN PO 09/24/16 10:00 10/24/16 09:59 09/25/16 07:20 30 ML Prednisone (PredniSONE TAB) 30 mg DAILY PO 09/25/16 09:00 09/30/16 08:59 09/25/16 07:17 30 MG Pantoprazole Sodium (Protonix Tab) 40 mg QAM PO 09/25/16 09:00 10/25/16 08:59 09/25/16 07:16 40 MG Benzonatate (Tessalon Perles Cap) 100 mg TID PRN PO 09/24/16 13:45 10/24/16 13:44 09/25/16 07:18 100 MG
[2016-09-25] MEDS ORDERED: PRED10TA PO (14:34)
[2016-09-25] MEDS ORDERED: MULT-589 PO (14:34)
[2016-09-25] MEDS ORDERED: XPNINS1255 INH (14:34)
[2016-09-25] MEDS ORDERED: ATRINS INH (14:34)
[2016-09-25] MEDS ORDERED: PRT40 PO (14:34)
[2016-09-25] MEDS ORDERED: UMEC1AER INH (14:34)
[2016-09-25] MEDS ORDERED: DXY100 PO (14:34)
[2016-09-25] MEDS ORDERED: GFNSR600 PO (14:34)
[2016-09-25] MEDS ORDERED: IPRA1AER2 INH (14:34)
--- NOTE | 2016-09-25 14:41 | Discharge Instructions ---
Discharge Instructions Date of Service Sep 25, 2016. Admission Reason for Admission: Respiratory Failure, Acute Discharge Discharge Diagnosis / Problem: COPD EXACERBATION Discharge Goals Goal(s): Diagnostic testing, Therapeutic intervention Activity Recommendations Activity Limitations: as noted below (NO HEAVY EXERTION UNTIL RE-EVALUATED BY PRIMARY CARE PHYSICIAN) . Instructions / Follow-Up Instructions / Follow-Up PLEASE REVIEW YOUR NEW MEDICATION LIST AND FOLLOW INSTRUCTIONS CAREFULLY. RETURN TO ER OR CALL PRIMARY CARE PHYSICIAN IMMEDIATELY IF WITH RECURRENCE OF SYMPTOMS, INCREASING COUGH, SHORTNESS OF BREATH, FEVER/CHILLS, CHEST OR ABDOMINAL PAIN. PLEASE TRY TO CUT DOWN AND STOP SMOKING. FOLLOW UP WITH PRIMARY CARE PHYSICIAN DR. CASILLAS (ASSOCIATE OF DR. OCHEN) ON SATURDAY OCTOBER 01, 2016 AT 2:45 PM. Current Hospital Diet Patient's current hospital diet: AHA Diet (Heart Healthy) Discharge Diet Recommended Diet: AHA Diet (Heart Healthy) Pending Studies Studies pending at discharge: no Medical Emergencies . Who to Call and When: Medical Emergencies: If at any time you feel your situation is an emergency, please call 911 immediately. . Non-Emergent Contact Non-Emergency issues call your: Primary Care Provider Call Non-Emergent contact if: you have a fever, your pain is not controlled, you have any medication questions . . "Provider Documentation" section prepared by [facility]. . VTE Core Measure Inpt VTE Proph given/why not?: Enoxaparin (Lovenox)SQ
--- NOTE | 2016-09-25 14:46 | Discharge Summary ---
Discharge Summary Date of Service Sep 25, 2016. Discharge Summary Admission Date: Sep 21, 2016 at 04:30 Discharge Date: Sep 25, 2016 Discharge Disposition: Home Principal Diagnosis: ACUTE ON CHRONIC RESPIRATORY FAILURE secondary to COPD exacerbation Secondary Diagnoses/Problems: Please refer to hospital course below for further details. Procedures: CHEST ONE VIEW PORTABLE CLINICAL HISTORY: sob COMPARISON STUDY: Outside radiograph dated 09/21/2016 FINDINGS: There is underlying pulmonary emphysema. The heart is normal in size. There is no failure. There is no focal pulmonary consolidation. There is a stable area of scarring at the left lung base. No pleural effusions are visualized.[ IMPRESSION: Emphysema. No acute findings. ECHO: * -- Conclusions -- * There is mild concentric left ventricular hypertrophy. * No regional wall motion abnormalities noted. * The left ventricle is hyperdynamic. * The LV Ejection Fraction = >70 %. * The right ventricle is normal in size and function. * The aortic valve is severely calcified. * Visualization is inadequate to allow determination of number of aortic valve leaflets. * Severe valvular aortic stenosis is present. * Grade I diastolic dysfunction, (abnormal relaxation pattern). * Trivial tricuspid regurgitation is present. The TR jet is therefore insufficient to estimate the pulmonary artery systolic pressure. * There is no 2D evidence of pulmonary hypertension. Consultations: CARDIOLOGY DR. ALBRECHT Pending Studies/Follow-Up: Please refer to hospital course below. Needs Cardiology follow up. Medication Reconciliation New Medications: Prednisone Tab (Prednisone) 10 Mg Tab 10 MG PO UD for 7 Days, #10 TAB 0 Refills take 3 tabs po daily x 1 day, then take 2 tabs po daily x 2 days, then take 1 tab po daily x 2 days, then take 1/2 tab po daily x 2 days, then STOP Doxycycline Hyclate (Doxycycline Hyclate) 100 Mg Cap 100 MG PO BID for 2 Days, #4 CAP 0 Refills Guaifenesin Ext Rel (Mucinex Ext Rel) 600 Mg Tabcr 600 MG PO Q12 for 2 Days, #4 TABS 0 Refills Ipratropium Waterfall (Ipratropium Waterfall) 0.5 Mg/2.5 Ml Nebu 0.5 MG INH Q4H PRN for Shortness of Breath for 30 Days, #20 UNIT 2 Refills Levalbuterol (Levalbuterol) 1.25 Mg/0.5 Ml Nebu 1.25 MG INH Q4H PRN for Shortness of Breath for 30 Days, #20 UNITS 2 Refills Multivitamins (Daily Aundrea) 1 Tab Tab 1 TAB PO QAM for 30 Days, #30 TAB 2 Refills Pantoprazole (Pantoprazole Sodium) 40 Mg Tab 40 MG PO QAM for 14 Days, #14 TAB 0 Refills Continued Medications: Albuterol Sulfate (Proair Respiclick) 108 Mcg/Act Aer 1 PUFFS INH Q4H PRN for Shortness of Breath Home O2 Therapy (Oxygen) Gas 2 LITERS NA PRN Ipratropium-Albuterol (Combivent Respimat) 1 Aer Aer 1 PUFFS INH QID for 7 Days, #1 INH 2 Refills (This prescription has been renewed ) Roflumilast (Daliresp) 500 Mcg Tab 1 TAB PO DAILY for 90 Days, #90 TAB 3 Refills Umeclidinium-Vilanterol (Anoro Ellipta 62.5-25 Mcg/INH) 1 Aer Aer Umeclidinium-Vilanterol (Anoro Ellipta 62.5-25 Mcg/INH) 1 Aer Aer 1 PUFF INH DAILY for 30 Days, #1 INHA 2 Refills (This prescription has been renewed) Discontinued Medications: Albuterol (Ventolin Hfa) 60 Puffs/5400 Mcg Aers Amoxicillin & Pot Clavulanate (Augmentin 875-125 mg) 1 Tab Tab 1 TAB PO BID, #14 TAB Ipratropium Waterfall (Ipratropium Waterfall) 0.5 Mg/2.5 Ml Nebu 1 VIAL NEB BID for 30 Days, #300 ML 5 Refills Prednisone (Prednisone) 20 Mg Tab 2 TAB PO DAILY, #5 TAB Admission Information HPI (per Admitting provider): CHIEF COMPLAINT: Shortness of breath and abnormal troponin. History was obtained from patient and records. HISTORY OF PRESENT ILLNESS: Medical history is significant for chronic hypoxemic respiratory failure 2 to COPD on home O2, ongoing tobacco abuse, daily alcohol intake, bucuspid aortic stenosis as per records, AAA, hx asbestos exposure. In the last week, patient's breathing was acting up, had increasing shortness of breath, dry cough, unable to expectorate and some chest heaviness, nonradiating. Patient was seen at [facility]. Noted to be tachypneic, O2 sats 94/4L Troponin was noted to be 0.40. EKG showed sinus tachycardia, TW flattening in the inferior leads. Possible non-ST elevation NH as per ER MD. 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 Patient was given statin, weight-based Lovenox before leaving [facility]. Physical Exam (per Admitting): VITAL SIGNS: Blood pressure was noted to be 111/77 pulse rate 94, respiratory rate 22, temperature 36.5 and sats 94 on 4 liters. GENERAL: Noted to be in minimal respiratory distress. Tremulous SKIN : normal color HEENT: Lucky palpebral conjunctivae. Dry mucosa. NECK: No JVD. Supple. CHEST: Decreased breath sounds. Occasional wheeze. HEART: Regular rate and rhythm. Systolic murmur. ABDOMEN: Some distension, nontender. EXTREMITIES: No edema, no tenderness. NEUROLOGIC: No gross focality except for tremors. Hospital Course ACUTE ON CHRONIC RESPIRATORY FAILURE secondary to COPD exacerbation - patient still smokes - CXR: no pneumonia - given Nebs q6h,tapering Prednisone, Doxycycline improved daily O2 sats > 90% on ambulation - discharge plan: Doxycycline po x 2 more days Prednisone taper, starting with 30mg daily Combivent TID until seen by PCP Nebs PRN continue Anoro/Ellipta - PCP ff up next week advised re: smoking cessation LOWER RIB, EPIGASTRIC DISCOMFORT - may have started with Reflux, triggering cough then rib pain - Protonix daily PRN Tessalon perles PRN Tramadol - resolved - Protonix 40mg x 2 weeks monitor as outpatient SEVERE AORTIC STENOSIS - bicuspid valve , with severe not a candidate for TAVR had recent follow up at [facility] pt's respiratory status needs to be optimized with smoking cessation prior to consider Aortic valve replacement ECHO The left ventricle is hyperdynamic. The LV Ejection Fraction = >70 %. The right ventricle is normal in size and function. The aortic valve is severely calcified. Visualization is inadequate to allow determination of number of aortic valve leaflets. Severe valvular aortic stenosis is present. Grade I diastolic dysfunction, (abnormal relaxation pattern). Cardiology consulted, Dr. Albrecht No further interventions at this time - continue outpatient follow up ELEVATED TROPONIN : possible demand ischemia , in the setting of hypoxia, COPD exacerbation with severe valvular heart disease no evidence of ACS ; no wall motion abnormality noted in ECHO No further interventions at this time ALCOHOLISM placed on Gabapentin protocol no signs of active withdrawal symptoms monitor FULL CODE DVT proph Lovenox given DISPOSITION d/c home today ff up with PCP in 1 week ff up with Director Of Social Services closely as outpatient Total time spent on discharge = 35 minutes This includes examination of the patient, discharge planning, medication reconciliation, and communication with other providers. Discharge Instructions Discharge Instructions Date of Service Sep 25, 2016. Admission Reason for Admission: Respiratory Failure, Acute Discharge Discharge Diagnosis / Problem: COPD EXACERBATION Discharge Goals Goal(s): Diagnostic testing, Therapeutic intervention Activity Recommendations Activity Limitations: as noted below (NO HEAVY EXERTION UNTIL RE-EVALUATED BY PRIMARY CARE PHYSICIAN) . Instructions / Follow-Up Instructions / Follow-Up PLEASE REVIEW YOUR NEW MEDICATION LIST AND FOLLOW INSTRUCTIONS CAREFULLY. RETURN TO ER OR CALL PRIMARY CARE PHYSICIAN IMMEDIATELY IF WITH RECURRENCE OF SYMPTOMS, INCREASING COUGH, SHORTNESS OF BREATH, FEVER/CHILLS, CHEST OR ABDOMINAL PAIN. PLEASE TRY TO CUT DOWN AND STOP SMOKING. FOLLOW UP WITH PRIMARY CARE PHYSICIAN DR. CASILLAS (ASSOCIATE OF DR. COHEN) ON SATURDAY OCTOBER 01, 2016 AT 2:45 PM. Current Hospital Diet Patient's current hospital diet: AHA Diet (Heart Healthy) Discharge Diet Recommended Diet: AHA Diet (Heart Healthy) Pending Studies Studies pending at discharge: no Medical Emergencies . Who to Call and When: Medical Emergencies: If at any time you feel your situation is an emergency, please call 911 immediately. . Non-Emergent Contact Non-Emergency issues call your: Primary Care Provider Call Non-Emergent contact if: you have a fever, your pain is not controlled, you have any medication questions . . "Provider Documentation" section prepared by Chemo Amaya. . VTE Core Measure Inpt VTE Proph given/why not?: Enoxaparin (Lovenox)SQ
== END 2016-09-25 15:45 | disposition home or self-care (01) | DRG 190 ==
LOC: C.2T 04:30
PROVIDERS: ADMIT Internal Medicine; ATTEND Internal Medicine
DX: J44.1 Chronic obstructive pulmonary disease with (acute) exacerbation (principal); J96.21 Acute and chronic respiratory failure with hypoxia; Q23.1 Congenital insufficiency of aortic valve; Z68.1 Body mass index [BMI] 19.9 or less, adult; E46 Unspecified protein-calorie malnutrition; F10.20 Alcohol dependence, uncomplicated; I71.4 Abdominal aortic aneurysm, without rupture; F17.210 Nicotine dependence, cigarettes, uncomplicated; Z99.81 Dependence on supplemental oxygen; Z77.090 Contact with and (suspected) exposure to asbestos; I07.1 Rheumatic tricuspid insufficiency; Z82.49 Family history of ischemic heart disease and other diseases of the circulatory system; Z79.82 Long term (current) use of aspirin; Z79.899 Other long term (current) drug therapy

== ENCOUNTER 2019-05-09 17:12 | Inpatient (IN) ==
[2019-05-09] MEDS ORDERED: SODIUM CHLORIDE 0.9% 500 ML IV ONE (17:48)
[2019-05-09] MEDS ORDERED: ALBUT/IPRATROP 3MG/0.5MG NEB 3 ML VIAL NEB ONE (18:15)
[2019-05-09] MEDS ORDERED: methylPREDNISolone 125 MG/2 ML VIAL IV STA (18:15)
[2019-05-09 18:23] LABS: Basophils # (auto) 0.03 K/uL (0-0.2); Basophils % (auto) 0.3 %; Eosinophils # (auto) 0.33 K/uL (0-0.5); Hematocrit (blood only) 32.9 % (42-52); Hemoglobin 10.8 g/dL (14.0-18.0); Immature Granulocytes # (auto) 0.11 K/uL (0.00-0.02); Lymphocytes # (auto) 1.03 K/uL (1.2-3.4); Lymphocytes % (auto) 9.3 %; Mean Corpuscular Hemoglobin 31.7 pg (25-34); Mean Corpuscular Hgb Conc 32.8 g/dL (32-36); Mean Corpuscular Volume 96.5 fL (80-100); Mean Platelet Volume 8.6 fL (7.4-10.4); Monocytes # (auto) 0.51 K/uL (0.11-0.59); Monocytes % (auto) 4.6 %; Neutrophils # (auto) 9.05 K/uL (1.4-6.5); Neutrophils % (auto) 81.8 %; Platelet Count 436 K/uL (130-400); RDW Standard Deviation 45.6 fL (36.4-46.3); Red Blood Count 3.41 M/uL (4.7-6.1); White Blood Count 11.06 K/uL (4.8-10.8)
--- NOTE | 2019-05-09 18:25 | XRay Report ---
XR chest 1V portable CLINICAL HISTORY: SOB dyspnea COMPARISON STUDY: 03/27/2018 FINDINGS: Chronic atelectasis left base. Mild emphysematous change. No focal infiltrate. IMPRESSION: Emphysematous and chronic basilar fibrotic change. No acute process. ACT 112: Negative or not required by law. The above report was generated using voice recognition software. It may contain grammatical, syntax or spelling errors. Electronically signed by: Raul Kimbrough M.D. 05/09/2019 6:23 PM
[2019-05-09 18:34] LABS: Partial Thromboplastin Time 28.2 Seconds (21.0-31.0); Prothrombin Time 9.8 Seconds (9.0-12.0)
[2019-05-09 18:40] LABS: Albumin Level 2.8 gm/dl (3.4-5.0); BUN Creatinine Ratio 13.3 (10-20); Calcium 9.6 mg/dl (8.5-10.1); Creatinine Clr Calc Pharmacy 111.4 ml/min; Est GFR (African American) 118.1; Est GFR (Non-African American) 101.9; Magnesium 2.5 mg/dl (1.8-2.4); Potassium 4.2 mmol/L (3.5-5.1)
[2019-05-09 18:54] LABS: Albumin Globulin Ratio 0.7 (0.9-2); Bilirubin,Total 0.2 mg/dl (0.2-1); Phosphorus 3.3 mg/dl (2.5-4.9); Total Protein 6.8 gm/dl (6.4-8.2); Troponin I 0.493 ng/ml (0-0.045)
[2019-05-09 20:49] LABS: Influenza A virus by PCR Neg for Influ A (Neg); Influenza B virus by PCR Neg for Influ B (Neg)
[2019-05-09] MEDS ORDERED: OPTIRAY 320 125ml IV PRN (21:01)
--- NOTE | 2019-05-09 21:01 | History & Physical Report ---
Date of Service May 09, 2019 Assessment & Plan (1) HCAP (healthcare-associated pneumonia): (2) Chronic respiratory failure with hypoxia: (3) COPD exacerbation: Mr. 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 Acute worsening shortness of breath, wheezing and cough likely in setting of acute COPD exacerbation in setting of recent hospitalization and abrupt cessation of steroids by patient CHEST CTA ordered: Negative for PE, but bibasilar patchy infiltrative changes Potentially representing early development of HCAP Admit to PCU Initiate IV antibiotics with Levaquin and Zosyn IV methylprednisolone 40 mg IV every 8 Pulmonary toilet with DuoNeb and incentive spirometry Sputum culture, MRSA swab, blood culture ordered Continue oxygen supplementation, he currently is requiring 4 L which according to him is his baseline Consult pulmonology Dr. Boyer - pt established with Dr. Boyer (4) Elevated troponin: Troponin 0.493 No acute EKG change Trend troponin, likely in setting of demand ischemia Obtain echocardiogram given recent procedure Low threshold to consult cardiology if symptoms do not improve (5) Thrombophlebitis of arm, left: L dorsal aspect of hand monitor warm compress on asa/plavix On IV levaquin and Zosyn for above; therefore covering for skin/soft tissue as well monitor area of erythema (6) S/P TAVR (transcatheter aortic valve replacement): Severe aortic stenosis status post TAVR 04/24/[address] Francois obtain echocardiogram to eval TAVR Pt appears euvolemic, he is hemodynamically stable and no peripheral edema, probnp WNL (7) Pseudoaneurysm of femoral artery: Status post open repair of R MAILING CLERK 05/04/19 [facility] [place] incision healing well, no signs of post op hematoma/abscess monitor (8) DVT prophylaxis: Lovenox Hx of Tobacco and ETOH Abuse has abstained from both since TAVR 04/24/19 continue to encourage Disposition: admit to PCU, case management consulted pt may benefit from short term rehab Follow up: PCP Dr. Dean upon discharge Patient was seen and examined in collaboration with Dr. Amaya, please see addendum History of Present Illness Chief Complaint: SOB x 2-3 days. Primary Care Provider: Jose Dean MD Mr. 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 Of significance patient recently hospitalized at [facility] on 04/25/2019 secondary to TAVR by Dr. Francois. He tolerated procedure well and was initiated on Plavix 75 mg daily for 3 months and discharged home. Subsequently patient was rehospitalized on 05/04/2019 secondary to right MAILING CLERK pseudoaneurysm status post repair. He tolerated procedure well and was discharged to home. At discharge he did have elevated temp 38.2. Urinalysis, urine culture and chest x-ray negative for infectious process. He was discharged to home on 05/05/2019. He was seen and evaluated today [facility] Huston. Per her note there was complaints of worsening shortness of breath, wheezing and cough for few days. It was felt symptoms likely secondary to COPD exacerbation as he was euvolemic. She was recommending starting on oral doxycycline and prednisone. According to patient his shortness of breath started this morning. "I just cannot catch my breath." He is chronically on 4 L of oxygen at home. Further complains of cough that started tonight but is nonproductive. Complains of subjective fever, chills and sweats, substernal chest pressure. Chest pressure is nonradiating and described as a heaviness. He denies any dizziness, lightheadedness, syncope, hemoptysis, palpitations, nausea, vomiting, abdominal pain, change in bowel or urinary habits, melena, hematochezia. Overall decreased appetite today. Lastly complains of pain and redness to posterior aspect of left hand where IV site was in place during hospitalization. Overall feels pain is improving but describes as being, "very hard." He does elicit that he has not been taking his oral prednisone. He was last seen by TITA cottrell on 05/02/19 in which tapering down his prednisone was discussed. It was recommended to titrate from 10 mg to 5 mg, but patient altogether discontinued. He does admit he has been compliant with his Trelegy as well as aspirin and Plavix. Multiple family members at bedside. In ED initial work-up revealed a WBC 11.06, H&H 10.8 and 32.9, platelet 436, BUN 8, creatinine 0.58, troponin 0.493, proBNP WNL, influenza negative. EKG revealed normal sinus rhythm at 70 bpm with occasional PACs, no ST or T wave changes. Chest x-ray revealed no acute abnormality but notable emphysema. He received IV Solu-Medrol 125 mg in hour-long albuterol nebulizer treatment. He continues to be oxygen saturations on 4 L via NC, but complains of no improvement in his symptoms. Allergies Allergy/AdvReac Type Severity Reaction Status Date / Time No Known Allergies Allergy Verified 05/09/19 18:37 Home Medications Home Medications Medication Instructions Recorded Confirmed Type albuterol sulfate 2 puff INHALATION Q4H PRN 03/27/18 05/09/19 History aspirin [Aspirin Low Dose] 81 mg PO DAILY 03/27/18 05/09/19 History multivitamin 1 tab PO DAILY 03/27/18 05/09/19 History mirtazapine [Remeron] 30 mg PO HS 09/20/18 05/09/19 History pantoprazole [Protonix] 40 mg PO QAM 09/20/18 05/09/19 History albuterol sulfate 2.5 mg INHALATION Q4H PRN #360 ml 01/24/19 05/09/19 Rx amoxicillin 2,000 mg PO ONCE PRN 05/09/19 05/09/19 History clopidogrel [Plavix] 75 mg PO DAILY 05/09/19 05/09/19 History doxycycline hyclate 100 mg PO BID PRN 05/09/19 05/09/19 History yoaunidvmko-mlsahqryz-eqvgzjly 1 inh INHALATION DAILY 05/09/19 05/09/19 History [Trelegy Ellipta] oxycodone-acetaminophen [Percocet] 1 tab PO Q6H PRN 05/09/19 05/09/19 History prednisone 0 mg PO DAILY PRN 05/09/19 05/09/19 History prednisone 10 mg PO DAILY 05/09/19 05/09/19 History Past Med/Surg History Medical History Aortic ectasia MILD, STABLE PROXIMAL AORTA ECTASIA PER 03/2017 U/S Carotid artery stenosis Central retinal vein occlusion of right eye 2017 Chronic respiratory failure with hypoxia Congenital bicuspid aortic valve COPD, severe EMERGENCY PACK PRN (ABX/PREDNISONE) STARTED 09/17/18- DYSPNEA SIGNIFICANTLY IMPROVED BACK TO BASELINE; ON 4L O2 CONTINUOUS Emphysema lung Essential tremor GERD (gastroesophageal reflux disease) CONTROLLED History of asbestos exposure Severe aortic stenosis [place] 0.5-0.6cm2; mean gradient 56.0mmhg PER 03/2018 ECHO; Not a surgical candidate for intervention per cardiothoracic surgeon due to underlying pulmonary disease. Surgical History History of colonoscopy with polypectomy History of facial surgery Hx of cardiac catheterization 2016 Hx of cataract extraction Hx of tonsillectomy S/P TAVR (transcatheter aortic valve replacement) Family History Mother S/P AVR Social History Preferred Language: German Communication Ability: Effective Marketing Project Coordinator Required: No Beliefs That Will Affect Care: None Current Living Situation: Alone Other Information That Helps Us Care for You: No Feels Safe at Home: Yes Safety Concerns: Feels Safe At This Time Smoking Status: Former smoker Tobacco Type: cigarettes ; packs per day: 0.25 ; Years Smoked: 62 ; Do You Dip or Chew Tobacco: No ; Smoking End Date: 04-25-2019 ; Second Hand Exposure: No ; Tobacco Cessation Education Requested by Patient: No Hx Alcohol Use: Yes Alcohol type: beer Alcohol Intake Frequency Comment: 6 pack per day; Last drink was 04/23/19 Hx Substance Use: Yes substance use type: former substance user Review of Systems Review of Systems: All systems reviewed & are unremarkable except as noted in HPI & below Physical Exam Physical Exam: Constitutional: Elderly, M, unkempt, WD/WN, vitals as above, NAD, sitting up in bed, pleasant, conversing easily Head: Normocephalic, Atraumatic Eyes: PERRL, conjunctivae normal, anicteric sclerae ENMT: external ear and nose normal, oropharynx normal Neck: trachea midline, no thyromegaly normal visual inspection Respiratory: on 4L of O2 via NC, normal respiratory effort, diminished breath sounds at bases/distant, insp and exp wheeze noted throughout, no rales, rhonchi. Normal insp/exp effort, no accessory muscle use Cardiovascular: RRR, no murmur auscultated, no rubs, no edema. Left dorsal hand with firm and erythematous lesion likely thrombophlebitis, no warmth or tenderness to palpation. vessels: no JVD or carotid bruit Chest: normal inspection of chest Abdomen: normal bowel sounds, soft, nontender, no hepatosplenomegaly Musculoskeletal: no cyanosis or clubbing, Skin: no rashes, warm and dry normal turgor, right inguinal incision clean dry and intact; however inferior aspect of incision mildly open, no drainage Neurologic: PERRL, EOMI, accommodation nl, no face palsy, no dysarthria CN's II-XI intact bilaterally and moves all extremities Psychiatric: A+Ox3, euthymic affect Lymphatic: no cervical or axillary lymphadenopathy : deferred Results & Data Vital Signs (Past 12 Hours) Vital Signs Temp Pulse Pulse Resp BP Pulse Ox 05/09/19 20:00 92 H 22 168/92 H 94 05/09/19 19:00 73 17 111/79 99 05/09/19 18:29 70 14 135/73 99 05/09/19 18:28 73 94 05/09/19 18:00 72 20 99 05/09/19 17:51 96 05/09/19 17:42 72 24 97 05/09/19 17:19 36.8 C 72 20 157/79 H 96 05/09/19 17:16 73 16 157/79 H 97 Laboratory Results Short CBC 05/09/19 05/09/19 05/09/19 Range/Units 18:13 18:13 18:13 WBC 11.06 H (4.8-10.8) K/uL Hgb 10.8 L (14.0-18.0) g/dL Hct 32.9 L (42-52) % Plt Count 436 H (130-400) K/uL Creatinine 0.58 L (0.6-1.4) mg/dl Troponin I 0.493 H* (0-0.045) ng/ml NT-Pro-B Natriuret Pep 655 Cancelled (0-900) pg/ml Influenza Type A (PCR) (Neg) Influenza Type B (PCR) (Neg) 05/09/19 Range/Units 19:58 WBC (4.8-10.8) K/uL Hgb (14.0-18.0) g/dL Hct (42-52) % Plt Count (130-400) K/uL Creatinine (0.6-1.4) mg/dl Troponin I (0-0.045) ng/ml NT-Pro-B Natriuret Pep (0-900) pg/ml Influenza Type A (PCR) Neg for Influ A (Neg) Influenza Type B (PCR) Neg for Influ B (Neg) BMP 05/09/19 18:13 Sodium 139 Potassium 4.2 Chloride 106 Carbon Dioxide 29 BUN 8 Creatinine 0.58 L Glucose 97 Calcium 9.6 Cardiac Enzymes 05/09/19 Range/Units 18:13 Troponin I 0.493 H* (0-0.045) ng/ml Liver Function 05/09/19 Range/Units 18:13 Total Bilirubin 0.2 (0.2-1) mg/dl AST 16 (15-37) U/L ALT 14 (12-78) U/L Alkaline Phosphatase 76 (45-117) U/L Albumin 2.8 L (3.4-5.0) gm/dl Diagnostic Findings CXR: FINDINGS: Chronic atelectasis left base. Mild emphysematous change. No focal infiltrate. IMPRESSION: Emphysematous and chronic basilar fibrotic change. No acute process. Medications Administered Ioversol (Optiray 320 125ml) 116 ml IV ONCE PRN PRN Reason: Interaction Checking Stop: 05/13/19 21:00 Last Admin: 05/09/19 21:02 Dose: 116 ml Documented by: [id number] Discontinued Medications Albuterol (Duoneb) 12 ml NEB ONE ONE Stop: 05/09/19 18:16 Last Admin: 05/09/19 18:28 Dose: 12 ml Documented by: [id number] Sodium Chloride (Nss) 500 mls @ 999 mls/hr IV .Q31M ONE Stop: 05/09/19 18:18 Last Infusion: 05/09/19 19:11 Dose: 0 mls/hr Documented by: [id number] Admin: 05/09/19 18:28 Dose: 999 mls/hr Documented by: [id number] Methylprednisolone (Solumedrol) 125 mg IV NOW STA Stop: 05/09/19 18:16 Last Admin: 05/09/19 18:28 Dose: 125 mg Documented by: [id number] ECG Rate (beats per minute): 78 Rhythm: normal sinus Findings: + PAC Code Status & VTE Plan Code Status Conditional code Okay with CPR, CPAP and BiPAP but no long-term mechanical ventilation VTE Prophylaxis Plan VTE Prophylaxis will be ordered: Yes Supervising Physician Co-Signing Physician Notes Attending Addendum: care coordinated with CM Sanchez please refer to her notes for full details, I agree with her notes patient seen and examined, records reviewed by myself as well on exam, patient seen sitting up in bed, not in distress but does have some effort with speaking, on 4 L NC reports breathing is slightly improved since admission reports cough, productive of yellow sputum, intermittent chills at home, associated chest tightness no other symptoms VS noted and reviewed orientedx 3 , not in distress, speaks in sentences with no effort nor accessory muscle use normal rate, regular rhythm, no murmurs diminished breath sounds, intermittent mild diffuse wheeze non distended, soft, nontender abdomen right inguinal region: surgical wound healing well, no erythema/edema/tenderness/warmth/bleeding no bipedal edema, erythema, warmth no neuro deficits WBC 11.06 Hg 10.8 Crea 0.58 trop 0.49 EKG no signs of acute ischemia ASSESSMENT AND PLAN SHORTNESS OF BREATH, LIKELY SECONDARY TO HCAP, COPD EXACERBATION CHRONIC RESPIRATORY FAILURE -- CT chest: 1. No evidence for pulmonary embolus. 2. Scattered bibasilar parenchymal infiltrative changes. -- ff up sputum, blood cultures, nasal MRSA swab -- IV Zosyn, Levaquin, IV solumedrol, Nebs RECENT TAVR 04/25/19 s/p REPAIR OF R FEMORAL PSEUDOANEURYSM 05/04/19 -- check echo follow troponin trend -- R femoral wound without signs of infection L HAND THROMBOPHLEBITIS -- no signs of infection at this time monitor Case and plan of care discussed with patient and his family members at the bedside in detail and at length All questions were answered They are all comfortable, understanding, agreeable with the plan of care other diagnoses and plan of care as per CM Sanchez's notes Chemo Amaya MD
--- NOTE | 2019-05-09 21:21 | CT Scan Report ---
CT angio chest PE protocol CT DOSE: 366.12 mGy.cm HISTORY: Chest pain. Dyspnea. PE TECHNIQUE: Multiaxial CT images of the chest were performed following the intravenous administration of contrast to evaluate the pulmonary arteries. Maximal intensity projection images were also obtaine d. A dose lowering technique was utilized adhering to the principles of ALARA. COMPARISON STUDY: 04/24/2019 FINDINGS: Pulmonary vasculature and enhances appropriately. No significant filling defects. Evidence for prior aortic valve replacement. No significant mediastinal or hilar adenopathy. The upper lungs are considered clear. Patchy parenchymal infiltrative changes in both lung bases. Nodular density within the right lower lo bes unchanged. Limited evaluation of the upper abdomen is unremarkable. IMPRESSION: 1. No evidence for pulmonary embolus. 2. Scattered bibasilar parenchymal infiltrative changes. ACT 112: Negative or not required by law. The above report was generated using voice recognition software. It may contain grammatical, syntax or spelling errors. Electronically signed by: Raul Kimbrough M.D. 05/09/2019 9:20 PM
[2019-05-09 21:25] LABS: Appearance Urine Clear (Clear); Bilirubin Urine Negative (Negative); Blood Urine Negative (Negative); Color Urine Yellow; Glucose Urine UA Negative (Negative); Ketones Urine Negative (Negative); Leukocyte Esterase Urine Negative (Negative); Nitrite Urine Negative (Negative); Protein Urine Negative (Negative); Specific Gravity Urine 1.006 (1.000-1.030); Urobilinogen Urine Negative (Negative); pH Urine 8.5 (4.5-7.5)
[2019-05-09] MEDS ORDERED: PIPERACILL/TAZOBAC CONSULT ACTIVE PRN (21:28)
[2019-05-09] MEDS ORDERED: LEVOFLOXACIN/D5W 750 MG/150 ML BAG IV SCH ×2 (21:30→22:00)
[2019-05-09] MEDS ORDERED: ONDANSETRON INJ 2 MG/ML 2 ML VIAL IV PRN (21:43)
[2019-05-09] MEDS ORDERED: ACETAMINOPHEN 325 MG TAB PO PRN (21:43)
[2019-05-09] MEDS ORDERED: POLYETHYLENE (MIRALAX) 17 GM PACK PO PRN (21:43)
[2019-05-09] MEDS ORDERED: PIPERACILLIN/TAZOBACTAM 3.375 GM in DEXTROSE 5% 100 ML IV ONE (22:00)
[2019-05-09] MEDS: UMECLIDINIUM/VILANTEROL 62.5/25MCG 7 PUFFS/INHALER INH SCH (22:07)
--- NOTE | 2019-05-09 22:15 | Emergency Department Note ---
Entered by Diane Doyle acting as a scribe for Tamir Garcia MD History of Present Illness General Chief complaint: Shortness of Breath/Dyspnea Stated complaint: CHEST PRESSURE, SOB Time Seen by Provider: 05/09/19 17:48 Source: patient History of Present Illness Provider complaint: Shortness of Breath/Dyspnea Onset (ago): day(s) 1 Location: chest Relieved By: + none Exacerbated By: + none Associated symptoms: + chest pain (Chest heaviness) and + weakness The patient is a 74 year old male who presents to the Emergency Room with complaints of shortness of breath/dyspnea that began last night. The patient states that his symptoms are not relieved nor exacerbated by anything specific. The patient reports experiencing chest heaviness and weakness in both extremities. The patient notes that he is on 4L of oxygen at home but denies coughing up any sputum. The patient mentioned that he had a valve replacement two weeks ago and has not been able to walk. Home Medications Home Medications Medication Instructions Recorded Confirmed Type albuterol sulfate 2 puff INHALATION Q4H PRN 03/27/18 05/09/19 History aspirin [Aspirin Low Dose] 81 mg PO DAILY 03/27/18 05/09/19 History multivitamin 1 tab PO DAILY 03/27/18 05/09/19 History mirtazapine [Remeron] 30 mg PO HS 09/20/18 05/09/19 History pantoprazole [Protonix] 40 mg PO QAM 09/20/18 05/09/19 History albuterol sulfate 2.5 mg INHALATION Q4H PRN #360 ml 01/24/19 05/09/19 Rx amoxicillin 2,000 mg PO ONCE PRN 05/09/19 05/09/19 History clopidogrel [Plavix] 75 mg PO DAILY 05/09/19 05/09/19 History doxycycline hyclate 100 mg PO BID PRN 05/09/19 05/09/19 History [id number] 1 inh INHALATION DAILY 05/09/19 05/09/19 History [Trelegy Ellipta] oxycodone-acetaminophen [Percocet] 1 tab PO Q6H PRN 05/09/19 05/09/19 History prednisone 0 mg PO DAILY PRN 05/09/19 05/09/19 History prednisone 10 mg PO DAILY 05/09/19 05/09/19 History Allergies Allergy/AdvReac Type Severity Reaction Status Date / Time No Known Allergies Allergy Verified 05/09/19 18:37 Past Med/Surg History Medical History Aortic ectasia MILD, STABLE PROXIMAL AORTA ECTASIA PER 03/2017 U/S Carotid artery stenosis Central retinal vein occlusion of right eye 2017 Chronic respiratory failure with hypoxia Congenital bicuspid aortic valve COPD, severe EMERGENCY PACK PRN (ABX/PREDNISONE) STARTED 09/17/18- DYSPNEA SIGNIFICANTLY IMPROVED BACK TO BASELINE; ON 4L O2 CONTINUOUS Emphysema lung Essential tremor GERD (gastroesophageal reflux disease) CONTROLLED History of asbestos exposure Severe aortic stenosis [place] 0.5-0.6cm2; mean gradient 56.0mmhg PER 03/2018 ECHO; Not a surgical candidate for intervention per cardiothoracic surgeon due to underlying pulmonary disease. Surgical History History of colonoscopy with polypectomy History of facial surgery Hx of cardiac catheterization 2016 Hx of cataract extraction Hx of tonsillectomy S/P TAVR (transcatheter aortic valve replacement) Family History Mother S/P AVR Social History Preferred Language: Brazilian Communication Ability: Effective Programming Specialist Required: No Beliefs That Will Affect Care: None Current Living Situation: Alone Other Information That Helps Us Care for You: No Feels Safe at Home: Yes Safety Concerns: Feels Safe At This Time Smoking Status: Former smoker Tobacco Type: cigarettes ; packs per day: 0.25 ; Years Smoked: 62 ; Do You Dip or Chew Tobacco: No ; Smoking End Date: 04-25-2019 ; Second Hand Exposure: No ; Tobacco Cessation Education Requested by Patient: No Hx Alcohol Use: Yes Alcohol type: beer Alcohol Intake Frequency Comment: 6 pack per day; Last drink was 04/23/19 Hx Substance Use: Yes substance use type: former substance user Review of Systems See HPI for pertinent positives & negatives. and A total of 10 systems reviewed and were otherwise negative Physical Exam Vital Signs Vital Signs - 24 hr 05/09/19 17:16 05/09/19 17:19 05/09/19 17:29 Temperature 36.8 C Temperature Source Oral Pulse Rate 73 72 Pulse Rate [Right Finger] Pulse Rate from SpO2 Sensor 72 Pulse Rhythm Regular Pulse Strength Normal Respiratory Rate 16 20 Respiratory Effort / Characteristics Non-Labored Spontaneous Non-Labored Spontaneous Respiratory Depth Normal Normal Respiratory Pattern Regular Regular Blood Pressure 157/79 H 157/79 H Blood Pressure Mean 87 105 Blood Pressure Position Lying Pulse Oximetry 97 96 Oxygen Delivery Method Nasal Cannula Nasal Cannula Nasal Cannula Oxygen Flow Rate 4 4 4 Sepsis Recent Fever Within 48 Hours No Sepsis New/Unexplained Change in Mental Status No Sepsis Action Taken by Nursing No Action Required 05/09/19 17:42 05/09/19 17:51 05/09/19 18:00 Temperature Temperature Source Pulse Rate 72 72 Pulse Rate [Right Finger] Pulse Rate from SpO2 Sensor 73 73 Pulse Rhythm Pulse Strength Respiratory Rate 24 20 Respiratory Effort / Characteristics Respiratory Depth Respiratory Pattern Blood Pressure Blood Pressure Mean Blood Pressure Position Pulse Oximetry 97 96 99 Oxygen Delivery Method Nasal Cannula Nasal Cannula Nasal Cannula Oxygen Flow Rate 4 4 4 Sepsis Recent Fever Within 48 Hours Sepsis New/Unexplained Change in Mental Status Sepsis Action Taken by Nursing 05/09/19 18:28 05/09/19 18:29 05/09/19 19:00 Temperature Temperature Source Pulse Rate 70 73 Pulse Rate [Right Finger] 73 Pulse Rate from SpO2 Sensor 70 74 Pulse Rhythm Pulse Strength Respiratory Rate 14 17 Respiratory Effort / Characteristics Non-Labored Spontaneous Respiratory Depth Respiratory Pattern Blood Pressure 135/73 111/79 Blood Pressure Mean 77 87 Blood Pressure Position Pulse Oximetry 94 99 99 Oxygen Delivery Method Nasal Cannula Nasal Cannula Oxygen Flow Rate 4 4 Sepsis Recent Fever Within 48 Hours Sepsis New/Unexplained Change in Mental Status Sepsis Action Taken by Nursing 05/09/19 20:00 Temperature Temperature Source Pulse Rate 92 H Pulse Rate [Right Finger] Pulse Rate from SpO2 Sensor 88 Pulse Rhythm Pulse Strength Respiratory Rate 22 Respiratory Effort / Characteristics Respiratory Depth Respiratory Pattern Blood Pressure 168/92 H Blood Pressure Mean 126 Blood Pressure Position Pulse Oximetry 94 Oxygen Delivery Method Oxygen Flow Rate Sepsis Recent Fever Within 48 Hours Sepsis New/Unexplained Change in Mental Status Sepsis Action Taken by Nursing GENERAL: Awake, alert, chronically ill-appearing, in no distress HENT: Normocephalic, atraumatic. Oropharynx with dry mucous membranes and otherwise unremarkable EYES: Normal conjunctiva. Sclera non-icteric. NECK: Supple. No nuchal rigidity. FROM. No JVD. RESPIRATORY: Scant intermittent wheeze, otherwise clear. CARDIAC: Regular rate, normal rhythm. Extremities warm and well perfused. Pulses equal. ABDOMEN: Soft, non-distended. No tenderness to palpation. No rebound or guarding. No masses. RECTAL: Deferred. MUSCULOSKELETAL: Chest examination reveals no tenderness. The back is symmetrical on inspection without obvious abnormality. There is no CVA tenderness to palpation. No joint edema. LOWER EXTREMITIES: Calves are equal size bilaterally and non-tender. No edema. No discoloration. NEURO: Normal sensorium. No sensory or motor deficits noted. SKIN: No rash or jaundice noted. Procedures Free Text Procedures Limited Point of Care Cardiac Ultrasound performed by me: Indication: Shortness of breath s/p TAVR Findings: Limited echocardiography revealed no pericardial fluid. Impression: Suboptimal views. No gross pericardial effusion. Course Course 1752: Past medical records reviewed. The patient was evaluated in room C02A. A complete history and physical exam was performed. 1948: I spoke with Dr. Arteaga- Hospitalist about the patient's case and he will accept the patient for further evaluation. Administered Medications Umeclidinium/Vilanterol (Anoro Ellipta 62.5/25 Mcg Inh) 1 puffs INH QAM LEONEL Stop: 06/08/19 08:59 Last Admin: 05/09/19 22:07 Dose: Not Given Documented by: [id number] Discontinued Medications Albuterol (Duoneb) 12 ml NEB ONE ONE Stop: 05/09/19 18:16 Last Admin: 05/09/19 18:28 Dose: 12 ml Documented by: [id number] Sodium Chloride (Nss) 500 mls @ 999 mls/hr IV .Q31M ONE Stop: 05/09/19 18:18 Last Infusion: 05/09/19 19:11 Dose: 0 mls/hr Documented by: [id number] Admin: 05/09/19 18:28 Dose: 999 mls/hr Documented by: [id number] Ioversol (Optiray 320 125ml) 116 ml IV ONCE PRN PRN Reason: Interaction Checking Stop: 05/13/19 21:00 Last Admin: 05/09/19 21:02 Dose: 116 ml Documented by: [id number] Methylprednisolone (Solumedrol) 125 mg IV NOW STA Stop: 05/09/19 18:16 Last Admin: 05/09/19 18:28 Dose: 125 mg Documented by: [id number] Medical Decision Making Differential Diagnosis Differential diagnosis: Etiologies such as infections, reactive airway disease, COPD, pneumonia, pleural effusion, pulmonary edema, ARDS, pneumothorax, CHF, cardiac ischemia, cardiac tamponade, dysrhythmia, anemia, pulmonary embolism, musculoskeletal, gastrointestinal process, as well as others were entertained. Medical Records Attestation: I reviewed the patient's medical records. Home Medications Current Medication List: was personally reviewed by me Laboratory Data Attestation: I reviewed the patient's lab results. Result diagrams: 05/09/19 18:13 05/09/19 18:13 Lab Results 05/09/19 05/09/19 05/09/19 Range/Units 17:23 18:13 18:13 WBC 11.06 H (4.8-10.8) K/uL RBC 3.41 L (4.7-6.1) M/uL Hgb 10.8 L (14.0-18.0) g/dL Hct 32.9 L (42-52) % MCV 96.5 (80-100) fL MCH 31.7 (25-34) pg MCHC 32.8 (32-36) g/dL RDW Std Deviation 45.6 (36.4-46.3) fL RDW Coeff of Isaias 13.0 (11.5-14.5) % Plt Count 436 H (130-400) K/uL MPV 8.6 (7.4-10.4) fL Immature Gran % (Auto) 1.0 % Neut % (Auto) 81.8 % Lymph % (Auto) 9.3 % [place] % (Auto) 4.6 % Eos % (Auto) 3.0 % Baso % (Auto) 0.3 % Immature Gran # (Auto) 0.11 H (0.00-0.02) K/uL Neut # (Auto) 9.05 H (1.4-6.5) K/uL Lymph # (Auto) 1.03 L (1.2-3.4) K/uL [place] # (Auto) 0.51 (0.11-0.59) K/uL Eos # (Auto) 0.33 (0-0.5) K/uL Baso # (Auto) 0.03 (0-0.2) K/uL PT 9.8 (9.0-12.0) Seconds INR 1.0 (0.9-1.1) APTT 28.2 (21.0-31.0) Seconds PTT Ratio 1.0 Sodium (136-145) mmol/L Potassium (3.5-5.1) mmol/L Chloride (98-107) mmol/L Carbon Dioxide (21-32) mmol/L Anion Gap (3-11) BUN (7-18) mg/dl Creatinine (0.6-1.4) mg/dl Est Cr Clr Drug Dosing ml/min Est GFR ( Amer) Est GFR (Non-Af Amer) BUN/Creatinine Ratio (10-20) Glucose (70-99) mg/dl Calcium (8.5-10.1) mg/dl Phosphorus (2.5-4.9) mg/dl Magnesium (1.8-2.4) mg/dl Total Bilirubin (0.2-1) mg/dl AST (15-37) U/L ALT (12-78) U/L Alkaline Phosphatase (45-117) U/L Troponin I (0-0.045) ng/ml NT-Pro-B Natriuret Pep (0-900) pg/ml Total Protein (6.4-8.2) gm/dl Albumin (3.4-5.0) gm/dl Globulin (2.5-4.0) gm/dl Albumin/Globulin Ratio (0.9-2) Urine Color Yellow Urine Appearance Clear (Clear) Urine pH 8.5 H (4.5-7.5) Ur Specific [place] 1.006 (1.000-1.030) Urine Protein Negative (Negative) Urine Glucose (UA) Negative (Negative) Urine Ketones Negative (Negative) Urine Blood Negative (Negative) Urine Nitrite Negative (Negative) Urine Bilirubin Negative (Negative) Urine Urobilinogen Negative (Negative) Ur Leukocyte Esterase Negative (Negative) Influenza Type A (PCR) (Neg) Influenza Type B (PCR) (Neg) 05/09/19 05/09/19 05/09/19 Range/Units 18:13 18:13 19:58 WBC (4.8-10.8) K/uL RBC (4.7-6.1) M/uL Hgb (14.0-18.0) g/dL Hct (42-52) % MCV (80-100) fL MCH (25-34) pg MCHC (32-36) g/dL RDW Std Deviation (36.4-46.3) fL RDW Coeff of Isaias (11.5-14.5) % Plt Count (130-400) K/uL MPV (7.4-10.4) fL Immature Gran % (Auto) % Neut % (Auto) % Lymph % (Auto) % [place] % (Auto) % Eos % (Auto) % Baso % (Auto) % Immature Gran # (Auto) (0.00-0.02) K/uL Neut # (Auto) (1.4-6.5) K/uL Lymph # (Auto) (1.2-3.4) K/uL [place] # (Auto) (0.11-0.59) K/uL Eos # (Auto) (0-0.5) K/uL Baso # (Auto) (0-0.2) K/uL PT (9.0-12.0) Seconds INR (0.9-1.1) APTT (21.0-31.0) Seconds PTT Ratio Sodium 139 (136-145) mmol/L Potassium 4.2 (3.5-5.1) mmol/L Chloride 106 (98-107) mmol/L Carbon Dioxide 29 (21-32) mmol/L Anion Gap 5.0 (3-11) BUN 8 (7-18) mg/dl Creatinine 0.58 L (0.6-1.4) mg/dl Est Cr Clr Drug Dosing 111.4 ml/min Est GFR ( Amer) 118.1 Est GFR (Non-Af Amer) 101.9 BUN/Creatinine Ratio 13.3 (10-20) Glucose 97 (70-99) mg/dl Calcium 9.6 (8.5-10.1) mg/dl Phosphorus 3.3 (2.5-4.9) mg/dl Magnesium 2.5 H (1.8-2.4) mg/dl Total Bilirubin 0.2 (0.2-1) mg/dl AST 16 (15-37) U/L ALT 14 (12-78) U/L Alkaline Phosphatase 76 (45-117) U/L Troponin I 0.493 H* (0-0.045) ng/ml NT-Pro-B Natriuret Pep 655 Cancelled (0-900) pg/ml Total Protein 6.8 (6.4-8.2) gm/dl Albumin 2.8 L (3.4-5.0) gm/dl Globulin 4.0 (2.5-4.0) gm/dl Albumin/Globulin Ratio 0.7 L (0.9-2) Urine Color Urine Appearance (Clear) Urine pH (4.5-7.5) Ur Specific [place] (1.000-1.030) Urine Protein (Negative) Urine Glucose (UA) (Negative) Urine Ketones (Negative) Urine Blood (Negative) Urine Nitrite (Negative) Urine Bilirubin (Negative) Urine Urobilinogen (Negative) Ur Leukocyte Esterase (Negative) Influenza Type A (PCR) Neg for Influ A (Neg) Influenza Type B (PCR) Neg for Influ B (Neg) ECG Data Indication: + SOB/dyspnea Rate (beats per minute): 78 Rhythm: + sinus rhythm ECG Intervals/blocks: + Normal QRS (QRS 94) and + Normal QT-c (QTC 453) ECG ST segments: + Nonspecific ST abnormalities; no ST depression and no ST elevation ECG Findings: + PACs and + Other (Aberrant conduction) Prescription Drug Monitoring Prescription Drug Findings: Radiology results as stated below per my review and the radiologist's interpretation: XR chest 1V portable CLINICAL HISTORY: SOB dyspnea COMPARISON STUDY: 03/27/2018 FINDINGS: Chronic atelectasis left base. Mild emphysematous change. No focal infiltrate. IMPRESSION: Emphysematous and chronic basilar fibrotic change. No acute process . ACT 112: Negative or not required by law. The above report was generated using voice recognition software. It may contain grammatical, syntax or spelling errors. Electronically signed by: Raul Kimbrough M.D. 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 On arrival the patient is chronically ill-appearing but no acute distress, afebrile with stable vital signs. On exam the patient appears clinically dry. He has scant intermittent wheezes. EKG without overt acute ischemia. Chest x-ray negative for acute process. WBC 11, nonspecific. H/H 10.8/32.9 decreased from prior however in his postop setting. Platelets 436, nonspecific. Chemistry without acidosis. Electrolytes and LFTs unremarkable. Troponin 0.493 increased from prior chronic elevations however also in the setting of his postop status. Flu negative. Patient was treated with Solu-Medrol and continuous DuoNeb on arrival. He did report some improvement though no significant improvement. Given the portions troponin elevation and worsening respiratory status reasonable to proceed with admission for most likely COPD flare. Patient and family were agreeable with this. He did take doxycycline at home prior to arrival as a part of his "pulmonary rescue pack". Case was discussed with Dr. Arteaga, [facility] hospitalist, who evaluate the patient for admission. A limited bedside cardiac ultrasound was performed. Suboptimal views were obtained. Views were negative for pericardial effusion. Impression & Plan COPD exacerbation, Elevated troponin, S/P TAVR (transcatheter aortic valve replacement), Oxygen dependent Discharge Plan Visit Data *Final* Discharge Date/Time: 05/09/19 21:15 Chief Complaint: Shortness of Breath/Dyspnea Stated Complaint: CHEST PRESSURE, SOB ED Provider: Tamir Garcia Discharge Problem: COPD exacerbation, Elevated troponin, S/P TAVR (transcatheter aortic valve replacement), Oxygen dependent Patient Disposition: Admitted As Inpatient Discharge Instructions Interventions: ED Discharge Assessment Last Done: 05/09/19 21:15 The scribe's documentation has been prepared under my direction and personally reviewed by me in its entirety. I confirm that the note above accurately reflects all work, treatment, procedures, and medical decision making performed by me.
[2019-05-09] MEDS: methylPREDNISolone 40 MG in SYRINGE 0 ML IV SCH (22:54)
[2019-05-10] MEDS: PIPERACILLIN/TAZOBACTAM 3.375 GM in DEXTROSE 5% 100 ML IV SCH ×2 (04:13→11:38)
[2019-05-10] MEDS: ALBUT/IPRATROP 3MG/0.5MG NEB 3 ML VIAL NEB SCH ×4 (07:15→19:37)
[2019-05-10] MEDS: UMECLIDINIUM/VILANTEROL 62.5/25MCG 7 PUFFS/INHALER INH SCH (08:16)
[2019-05-10] MEDS: FLUTICASONE FUROATE 100MCG 14 PUFFS/INHALER INH SCH (08:16)
[2019-05-10] MEDS: MULTIVITAMIN TAB PO SCH (08:17)
[2019-05-10] MEDS: ASPIRIN 81 MG ECTAB PO SCH (08:17)
[2019-05-10] MEDS: SACCHAROMYCES BOULARDII 250 MG CAP PO SCH (08:17)
[2019-05-10] MEDS: ENOXAPARIN INJ 40 MG/0.4 ML SYR SQ SCH (08:17)
[2019-05-10] MEDS: CLOPIDOGREL BISULFATE 75 MG TAB PO SCH (08:17)
[2019-05-10] MEDS: methylPREDNISolone 40 MG in SYRINGE 0 ML IV SCH ×2 (08:18→14:50)
[2019-05-10] MEDS: PANTOprazole 40 MG TAB PO SCH (08:18)
--- NOTE | 2019-05-10 09:02 | Pulmonary Consultation ---
Date of Consultation May 10, 2019 Assessment & Plan (1) COPD exacerbation: Patient presents with acute shortness of breath that has progressed since discharge from [facility] 05/05/2019 Patient reports that while at [facility] they maintain an SaO2 of 100% The patient felt so well that on Wednesday he abruptly stopped his chronic prednisone Patient presented the emergency room yesterday and was found to have bibasilar pneumonia. * Day 2 of Zosyn and levofloxacin CT scan was negative for PE but does show chronic changes in addition to the acute infiltrates On examination at bedside, the patient is oxygenating with an SaO2 of 97% * Would recommend cutting down the oxygen to maintain SaO2 of 88 to 92% and see if patient's shortness of breath improves On examination patient does have multifield bronchospasm * Patient been started on methylprednisolone with a loading dose of 125 mg IV and continues on 40 mg 3 times daily * Consider changing patient to prednisone 40 mg daily tomorrow Continue with bronchodilators Check procalcitonin Ambulate as tolerated (2) Chronic steroid use: Patient abruptly stopped his prednisone on Wednesday Patient started methylprednisolone here Consider de-escalating steroids to 40 mg of prednisone orally tomorrow Taper to 5 mg daily until seen in clinic (3) Severe aortic stenosis: Status post TAVR 04/25/2019 at [facility] Repeat echocardiogram ordered Further management per cardiology (4) Elevated troponin: Troponin elevated on admission * 0.493, 0.450, 0.398 * Echocardiogram ordered (5) Tobacco abuse: Patient states that he quit smoking 3 weeks ago and has no intention of restarting Encouraged complete abstinence (6) Alcohol use: Last beer 3 weeks ago Patient states no desire to abstain from moderate ethanol use (7) DVT prophylaxis: Enoxaparin Continue clopidogrel Ambulate as tolerated Thank you for including us in the care of this patient. We will continue to follow along with you Please refer to Dr. Boyer's addendum for further recommendations and corrections. Supervising Physician Co-Signing Physician Notes Patient seen and examined. EMR and patient is known to me from a recent clinical evaluation. Agree with assessment and plan as noted in CM byrd's n ote. Briefly, patient is a 74-year-old male with history of advanced obstructive lung disease as well as valvular heart disease. I met him in clinic about a week and a half ago. He had been followed by 1 of the PAs in pulmonary clinic for period of time. He had significant respiratory difficulties and recently underwent TAVR. This was markedly beneficial in improving his shortness of breath and when I saw him he was ready to be weaned off of prednisone. We placed him on Trelegy. His TAVR procedure was complicated by development of a pseudoaneurysm in his right groin. He returned to [facility] to have this repaired last week. He states that ever since having this repaired he has had respiratory issues with increasing cough, wheezing, shortness of breath. He also de-escalate his steroids which she had been on chronically as well as his nebulized medication. He appears to be suffering from signs and symptoms consistent with an acute exacerbation of COPD. I do not see significant infiltrate on his CT scan, the basilar changes likely represent atelectasis. In addition he is afebrile and his white count is not markedly elevated. At this point time I recommend a azithromycin for severe acute exacerbation of COPD as well as aggressive bronchodilators. Systemic steroids will also be continued with plans to transition to oral. Will defer to his primary provider his elevated troponin. We will continue to follow with you History of Present Illness Attending Physician: Addison Drake MD History of Present Illness Attending: Dr. Boyer This is a 74-year-old male with a history of severe aortic stenosis that just underwent TAVR 04/25/2019. Patient was discharged on clopidogrel 75 mg daily. He was then rehospitalized 05/04/2019 for right common femoral artery pseudoaneurysm. He underwent repair and was again discharged home on 05/05/2019. During his hospitalization, patient states that he was kept at an SaO2 of 100%. This past Wednesday the patient was feeling so well that he abruptly stopped his chronic prednisone. Yesterday the patient was seen by [facility] at home with Dr. Mora and appeared to be with COPD exacerbation as he appeared to be euvolemic. Patient is currently being treated for possible healthcare associated pneumonia with levofloxacin and Zosyn. Patient was also started with loading dose of methylprednisolone at 125 mg and is currently receiving 40 mg 3 times daily. Review of patient's record reveals that SaO2 has been around 97%. Patient continues to complain of shortness of breath but has no respiratory distress and no use of accessory muscles. Patient reports compliance with all prescribed medications other than the prednisone. Patient most recently seen in the pulmonary office by Dr. Boyer on 05/02/2019. Most recent pulmonary function testing was done 09/29/2018 and is as follows: FVC 53% of predicted FEV1 28% of predicted FEV1/FVC 53% of predicted TLC 239% of predicted RV/TLC 227% of predicted DLCOunc 54% of predicted Patient states that prior to his TAVR he had burning of the chest that felt like a warm infusion. That improved with surgery but states that it returned yesterday. The patient also states that his wheezes were completely resolved. He has noted to have bronchospasm today on exam. Patient has no lower extremity edema and denies any lower extremity pain. He does state that he has instability secondary to poor balance but does well with a walker. The patient does live alone but has children in the area the visit him periodically. The patient denies fever, chills, sweats, rigors. He has no nausea or vomiting. He has no diarrhea. Bowel movements are normal. He denies any dysphasia. He has no significant cough and denies hemoptysis. The patient has no other acute complaints. PMH: Severe aortic stenosis with recent TAVR COPD with severe obstruction Chronic abnormal CT of chest History of tobacco abuse (quit smoking April 2019) History of ethanol use (last beer 3 weeks ago) Pseudoaneurysm of common femoral artery on the right status post repair Central retinal vein occlusion of right eye Bilateral cataracts with repair Allergies Allergy/AdvReac Type Severity Reaction Status Date / Time No Known Allergies Allergy Verified 05/09/19 18:37 Home Medications Home Medications Medication Instructions Recorded Confirmed Type albuterol sulfate 2 puff INHALATION Q4H PRN 03/27/18 05/09/19 History aspirin [Aspirin Low Dose] 81 mg PO DAILY 03/27/18 05/09/19 History multivitamin 1 tab PO DAILY 03/27/18 05/09/19 History mirtazapine [Remeron] 30 mg PO HS 09/20/18 05/09/19 History pantoprazole [Protonix] 40 mg PO QAM 09/20/18 05/09/19 History albuterol sulfate 2.5 mg INHALATION Q4H PRN #360 ml 01/24/19 05/09/19 Rx amoxicillin 2,000 mg PO ONCE PRN 05/09/19 05/09/19 History clopidogrel [Plavix] 75 mg PO DAILY 05/09/19 05/09/19 History doxycycline hyclate 100 mg PO BID PRN 05/09/19 05/09/19 History ygcekaeptni-rzpxvzbrf-mnrvyvfl 1 inh INHALATION DAILY 05/09/19 05/09/19 History [Trelegy Ellipta] oxycodone-acetaminophen [Percocet] 1 tab PO Q6H PRN 05/09/19 05/09/19 History prednisone 0 mg PO DAILY PRN 05/09/19 05/09/19 History prednisone 10 mg PO DAILY 05/09/19 05/09/19 History Patient History Medical History (Updated 05/10/19 @ 09:33 by Ramírez Byrd PA-C) Aortic ectasia MILD, STABLE PROXIMAL AORTA ECTASIA PER 03/2017 U/[place] Carotid artery stenosis Central retinal vein occlusion of right eye 2017 Chronic respiratory failure with hypoxia Chronic steroid use Congenital bicuspid aortic valve COPD, severe EMERGENCY PACK PRN (ABX/PREDNISONE) STARTED 09/17/18- DYSPNEA SIGNIFICANTLY IMPROVED BACK TO BASELINE; ON 4L O2 CONTINUOUS Emphysema lung Essential tremor GERD (gastroesophageal reflux disease) CONTROLLED History of asbestos exposure Severe aortic stenosis [place] 0.5-0.6cm2; mean gradient 56.0mmhg PER 03/2018 ECHO; Not a surgical candidate for intervention per cardiothoracic surgeon due to underlying pulmonary disease. 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 Beliefs That Will Affect Care: None Current Living Situation: Alone Other Information That Helps Us Care for You: No Feels Safe at Home: Yes Safety Concerns: Feels Safe At This Time Smoking Status: Former smoker Tobacco Type: cigarettes ; packs per day: 0.25 ; Years Smoked: 62 ; Do You Dip or Chew Tobacco: No ; Smoking End Date: 04-25-2019 ; Second Hand Exposure: No ; Tobacco Cessation Education Requested by Patient: No Hx Alcohol Use: Yes Alcohol type: beer Alcohol Intake Frequency Comment: 6 pack per day; Last drink was 04/23/19 Hx Substance Use: Yes substance use type: former substance user Review of Systems Review of Systems: All systems reviewed & are unremarkable except as noted in HPI & below Physical Exam Physical Exam: GENERAL : No acute distress. Pleasant and talkative EYES: No icterus, gaze conjugate. Pupils equal round and reactive to light NOSE: No evidence of epistaxis. Nasal cannula is in place and secure MOUTH: No lesions or candidiasis. Tongue is midline. No facial droop. Dentures are in place. No evidence of blood or debris in posterior oropharynx NECK: Supple LUNGS: Scattered posterior bronchospasm and all lung zones. Minimal anterior apical expiratory wheezes. Some bibasilar fine crackles. Deep inspiration in duces cough. HEART: Regular, rate controlled ABDOMEN: Soft, NT, ND, BS Present EXTREMITIES: No LE edema, pedal pulses intact and equal bilaterally. NEURO: A&OX3. No appreciation of focal deficits. Results & Data Vital Signs (Past 12 Hours) Vital Signs Temp Pulse Pulse Pulse Resp BP BP 05/10/19 08:00 36.7 C 73 76 20 128/73 05/10/19 07:17 79 19 05/10/19 04:26 36.6 C 74 20 139/80 05/09/19 22:47 36.6 C 80 153/87 H 05/09/19 22:20 83 05/09/19 21:47 94 H 05/09/19 21:45 83 05/09/19 21:44 36.9 C 88 24 154/76 H Pulse Ox 05/10/19 08:00 97 05/10/19 07:17 98 05/10/19 04:26 99 05/09/19 22:47 95 05/09/19 22:20 05/09/19 21:47 05/09/19 21:45 05/09/19 21:44 96 Laboratory Results 05/09/19 18:13 05/09/19 18:13 No ABGs were collected Diagnostic Findings CT angio chest PE protocol CT DOSE: 366.12 mGy.cm HISTORY: Chest pain. Dyspnea. PE TECHNIQUE: Multiaxial CT images of the chest were performed following the intravenous administration of contrast to evaluate the pulmonary arteries. Maximal intensity projection images were also obtained. A dose lowering technique was utilized adhering to the principles of ALARA. COMPARISON STUDY: 04/24/2019 FINDINGS: Pulmonary vasculature and enhances appropriately. No significant filling defects. Evidence for prior aortic valve replacement. No significant mediastinal or hilar adenopathy. The upper lungs are considered clear. Patchy parenchymal infiltrative changes in both lung bases. Nodular density within the right lower lobes unchanged. Limited evaluation of the upper abdomen is unremarkable. IMPRESSION: 1. No evidence for pulmonary embolus. 2. Scattered bibasilar parenchymal infiltrative changes. ACT 112: Negative or not required by law. The above report was generated using voice recognition software. It may contain grammatical, syntax or spelling errors. Electronically signed by: Raul Kimbrough M.D. 05/09/2019 9:20 PM PG Care Time/CCT Total # of Minutes Spent Total Time Spent with Patient: Total time spent is greater than 50% in coordination of care (as documented) at patient's floor/unit and/or counseling patient: 40 minutes
[2019-05-10] MEDS ORDERED: ACETAMINOPHEN 325 MG TAB PO PRN (14:45)
--- NOTE | 2019-05-10 14:45 | Hospitalist Progress Note ---
Date of Service May 10, 2019 Assessment & Plan (1) Chronic respiratory failure with hypoxia: -Mr. Redding is a 74-year-old male who has significant PMH for chronic hypoxic respiratory failure on 4 L of O2, COPD, CAD, severe aortic stenosis status post TAVR on 04/25/2019, right INSOLE FILLER pseudoaneurysm status post repair 05/04/2019, history of tobacco abuse, history of alcohol abuse who presents to ED secondary to worsening shortness of breath x 2 to 3 days. (Patient presents with acute shortness of breath that has progressed since discharge from [facility] 05/05/2019) -chronic oxygen supplementation, around 4 L/min as per patient (2) HCAP (healthcare-associated pneumonia): -admission CHEST CTA ordered: Negative for PE, but bibasilar patchy infiltrative changes -admission WBC 11,000 with history of recent stopping of respiratory steroids -pneumonia initially suspected but as per pulmonary service, patient appears to be suffering from signs and symptoms consistent with an acute exacerbation of COPD.; the basilar changes likely represent atelectasis on CT scan and patient has been afebrile and his white count is not markedly elevated. (3) COPD exacerbation: -on admission, patient given Levaquin and Zosyn empirically and IV methylprednisolone 40 mg IV every 8 -will transition to azithromycin on 05/10/2019 as per pulmonary service for COPD exacerbation -supplementary oxygen to maintain SaO2 of 88 to 92% , nebulizer treatments -Consider changing patient to prednisone 40 mg daily starting on 05/11/2019 History of Tobacco and ETOH Abuse -has abstained from both since TAVR 04/24/19 -continue to encourage cessation (4) S/P TAVR (transcatheter aortic valve replacement): -Severe aortic stenosis status post TAVR 04/24/[address] Francois prior to this hospitalization at [facility] -echocardiogram 05/10/2019: ejection fraction is 60 to 65% with grade I diastolic dysfunction. No acute valvular complication from TAVR are noted (5) Elevated troponin: -admission Troponin 0.493, No acute EKG change, no chest pain, troponin downtrended to 0.450 and 0.398 -echocardiogram 05/10/2019: ejection fraction is 60 to 65% with grade I diastolic dysfunction. No acute valvular complication from TAVR are noted -troponins likely from recent procedure and demand ischemia from illness -continue to monitor on telementru (6) Thrombophlebitis of arm, left: -on admission, there was warm of Left dorsal aspect of hand -monitor for now (7) Pseudoaneurysm of femoral artery: -Status post open repair of common femoral artery (INSOLE FILLER 05/04/2019 [facility] (8) DVT prophylaxis: -Lovenox Subjective Patient seen and examined at bedside. on nasal cannula. receiving IV Zosyn. Patient does not have acute respiratory distress currently. no coughing. no chest pain. no palpitations. no dizziness. no headache. no vomiting Review of Systems Review of Systems: All systems reviewed & are unremarkable except as noted in HPI & below Physical Exam Constitutional: comfortable Eyes: PERRL, conjunctivae normal, anicteric sclerae EOM intact bilaterally ENMT: external ear and nose normal, oropharynx normal Respiratory: normal respiratory effort Cardiovascular: Rate/Rhythm: regular rate Gastrointestinal (Abdomen): normal bowel sounds, soft, nontender, no hepatosplenomegaly Musculoskeletal: Head/Neck/Chest: normocephalic and head atraumatic Neurologic: PERRL, EOMI, accommodation nl, no face palsy, no dysarthria CN's II-XI intact bilaterally Psychiatric: A+Ox3, euthymic affect Results & Data Vital Signs (Past 12 Hours) Vital Signs Temp Pulse Pulse Pulse Resp BP Pulse Ox 05/10/19 11:03 36.6 C 70 26 H 124/73 98 05/10/19 10:56 78 19 98 05/10/19 08:00 36.7 C 73 76 20 128/73 97 05/10/19 07:17 79 19 98 05/10/19 04:26 36.6 C 74 20 139/80 99
[2019-05-10] MEDS: AZITHROMYCIN 250 MG TAB PO SCH ×2 (14:49→14:57)
[2019-05-10] MEDS ORDERED: BUDESONIDE 0.5 MG/2 ML VIAL (PULMICORT) NEB SCH (19:00)
--- NOTE | 2019-05-10 22:56 | Electrocardiogram Report ---
Test Reason : Blood Pressure : / mmHG Vent. Rate : 078 BPM Atrial Rate : 078 BPM P-R Int : 156 ms QRS Dur : 094 ms QT Int : 398 ms P-R-T Axes : 048 026 088 degrees QTc Int : 453 ms Sinus rhythm with Premature ventricular complexes Nonspecific ST abnormality Abnormal ECG When compared with ECG of 27-MAR-2018 13:29, Premature ventricular complexes are now Present Borderline criteria for Anterior infarct are no longer Present Confirmed by Daniel Dillon ([id number]) on 05/10/2019 10:56:20 PM Referred By: REFERRED SELF Confirmed By:Daniel Dillon
--- NOTE | 2019-05-10 23:20 | Electrocardiogram Report ---
Test Reason : Blood Pressure : / mmHG Vent. Rate : 068 BPM Atrial Rate : 068 BPM P-R Int : 174 ms QRS Dur : 090 ms QT Int : 426 ms P-R-T Axes : 069 048 071 degrees QTc Int : 452 ms Normal sinus rhythm Normal ECG When compared with ECG of 09-MAY-2019 17:17, Premature ventricular complexes are no longer Present Confirmed by Daniel Dillon ([id number]) on 05/10/2019 11:21:12 PM Referred By: REFERRED SELF Confirmed By:Daniel Dillon
[2019-05-11] MEDS: ALBUT/IPRATROP 3MG/0.5MG NEB 3 ML VIAL NEB SCH ×5 (03:32→19:32)
[2019-05-11] MEDS: predniSONE 20 MG TAB PO SCH (07:57)
[2019-05-11] MEDS: FLUTICASONE FUROATE 100MCG 14 PUFFS/INHALER INH SCH (07:57)
[2019-05-11] MEDS: UMECLIDINIUM/VILANTEROL 62.5/25MCG 7 PUFFS/INHALER INH SCH (07:57)
[2019-05-11] MEDS: ASPIRIN 81 MG ECTAB PO SCH (07:58)
[2019-05-11] MEDS: AZITHROMYCIN 250 MG TAB PO SCH (07:58)
[2019-05-11] MEDS: PANTOprazole 40 MG TAB PO SCH (07:58)
[2019-05-11] MEDS: MULTIVITAMIN TAB PO SCH (07:59)
[2019-05-11] MEDS: ENOXAPARIN INJ 40 MG/0.4 ML SYR SQ SCH (07:59)
[2019-05-11] MEDS: CLOPIDOGREL BISULFATE 75 MG TAB PO SCH (07:59)
[2019-05-11] MEDS: SACCHAROMYCES BOULARDII 250 MG CAP PO SCH (07:59)
[2019-05-11 08:11] LABS: Basophils # (auto) 0.02 K/uL (0-0.2); Basophils % (auto) 0.2 %; Eosinophils % (auto) 0.9 %; Hematocrit (blood only) 31.9 % (42-52); Hemoglobin 10.4 g/dL (14.0-18.0); Immature Granulocytes # (auto) 0.06 K/uL (0.00-0.02); Immature Granulocytes % (auto) 0.5 %; Lymphocytes # (auto) 2.33 K/uL (1.2-3.4); Lymphocytes % (auto) 19.9 %; Mean Corpuscular Hemoglobin 31.2 pg (25-34); Mean Corpuscular Hgb Conc 32.6 g/dL (32-36); Mean Corpuscular Volume 95.8 fL (80-100); Mean Platelet Volume 8.9 fL (7.4-10.4); Monocytes # (auto) 1.05 K/uL (0.11-0.59); Neutrophils # (auto) 8.12 K/uL (1.4-6.5); Neutrophils % (auto) 69.5 %; Platelet Count 456 K/uL (130-400); RDW Coefficient of Variation 13.1 % (11.5-14.5); RDW Standard Deviation 45.4 fL (36.4-46.3); Red Blood Count 3.33 M/uL (4.7-6.1); White Blood Count 11.68 K/uL (4.8-10.8)
[2019-05-11 08:43] LABS: Albumin Level 2.9 gm/dl (3.4-5.0); BUN Creatinine Ratio 19.3 (10-20); Calcium 9.1 mg/dl (8.5-10.1); Creatinine Clr Calc Pharmacy 91.3 ml/min; Est GFR (African American) 110.6; Est GFR (Non-African American) 95.4; Potassium 3.5 mmol/L (3.5-5.1)
[2019-05-11] MEDS ORDERED: POTASSIUM CHLORIDE 20 MEQ TABCR PO STA (08:47)
[2019-05-11 08:48] LABS: Albumin Globulin Ratio 0.8 (0.9-2); Bilirubin,Total 0.2 mg/dl (0.2-1); Globulin 3.8 gm/dl (2.5-4.0); Total Protein 6.7 gm/dl (6.4-8.2)
--- NOTE | 2019-05-11 11:17 | Pulmonology Progress Note ---
Date of Service May 11, 2019 Assessment & Plan (1) COPD exacerbation: Patient presented the emergency room with progressive SOB. Bibasilar pneumonia was suggested on imaging but patient denies fever or incresed sputum production. * Started on Zosyn and levofloxacin * Antibiotics de-escalated to Azithromycin yesterday * Day #[address] scan was negative for PE. Chronic changes seen Suspect that oxygen requirements are down due to recent TAVR Echo completed * Leaflets not well visualized but appear freely mobile * LVEF 60-65% * Possible pseudovalvular - within normal limits for structure * Trivial perivavular insufficiency Continue with bronchodilators Continue to titrate supplemental O2 to maintain SaO2 between 88-92% Ambulate as tolerated - preferably in the hallways (2) Chronic steroid use: Patient abruptly stopped his prednisone on Wednesday Patient started methylprednisolone here De-escalated steroids to 40 mg of prednisone orally today Continue with rapid taper to 5 mg daily until seen in clinic (3) Severe aortic stenosis: Status post TAVR 04/25/2019 at [facility] Repeat echo: * Leaflets not well visualized but appear freely mobile * LVEF 60-65% * Possible pseudovalvular - within normal limits for structure * Trivial perivavular insufficiency Further management per cardiology (4) Elevated troponin: Troponin elevated on admission * 0.493, 0.450, 0.398 * Echocardiogram with no wall motion abnormality (5) Tobacco abuse: Patient states that he quit smoking 3 weeks ago and has no intention of restarting Encouraged complete abstinence (6) Alcohol use: Last beer 3 weeks ago Patient states no desire to abstain from moderate ethanol use Seems "fidgety" today. Most likely due to high dose steroids but need to watch for ethanol withdrawal (7) DVT prophylaxis: Enoxaparin Continue clopidogrel Ambulate as tolerated Thank you for including us in the care of this patient. We will continue to f sim along with you Please refer to Dr. Boyer's addendum for further recommendations and corrections. Subjective Attending: Dr. Boyer Patient is doing well today and states he is somewhat better regarding his shortness of breath. He continues with wet cough and no sputum production. Wheezes are intermittent. He was able to ambulate around the room without dyspnea with exertion. He has no chest pain or tightness. He does state that he is agitated and has a tremor. This is most likely due to his IV steroids. The patient denies any other acute complaints. Review of Systems Review of Systems: All systems reviewed & are unremarkable except as noted in HPI & below Physical Exam Physical Exam: GENERAL : No acute distress. Talkative EYES: No icterus, gaze conjugate NOSE: No evidence of epistaxis. Nasal cannula in place with 2 L/min and an SaO2 of 95% MOUTH: No lesions or candidiasis. Mucosa moist NECK: Supple LUNGS: Coarse crackles at the bilateral bases. There are some scattered expiratory wheezes in the posterior field. HEART: Regular, rate controlled ABDOMEN: Soft, NT, ND, BS Present EXTREMITIES: No LE edema, pedal pulses intact and equal bilaterally NEURO: A&OX3. Results & Data Vital Signs (Past 12 Hours) Vital Signs Temp Pulse Pulse Resp BP BP Pulse Ox 05/11/19 11:12 71 19 94 05/11/19 08:00 65 05/11/19 06:54 36.4 C L 69 22 127/76 94 05/11/19 06:51 83 19 94 05/11/19 03:33 68 16 98 05/11/19 02:54 36.6 C 75 19 134/70 98 05/11/19 00:00 75 05/10/19 23:20 36.7 C 78 20 134/70 97 Laboratory Results 05/11/19 07:58 05/11/19 07:58 Diagnostic Findings No imaging since 05/09/2019 Medications Administered Antibiotics changed from Levofloxacin and Zosyn to Azithromycin 05/10/2019 * Day # 3 abx Steroids changed from IV methylpednisolone 40mg TID to Prednisone 40 mg PO Daily 05/11/2019 PG Care Time/CCT Total # of Minutes Spent Total Time Spent with Patient: Total time spent is greater than 50% in coordination of care (as documented) at patient's floor/unit and/or counseling patient: 25 minutes
--- NOTE | 2019-05-11 12:34 | Hospitalist Progress Note ---
Date of Service May 11, 2019 Assessment & Plan (1) Chronic respiratory failure with hypoxia: -Mr. 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 (Patient presents with acute shortness of breath that has progressed since discharge from [facility] 05/05/2019) -chronic oxygen supplementation, around 4 L/min as per patient at home (2) HCAP (healthcare-associated pneumonia): -admission CHEST CTA ordered: Negative for PE, but bibasilar patchy infiltrative changes -admission WBC 11,000 with history of recent stopping of respiratory steroids -pneumonia initially suspected but as per pulmonary service, patient appears to be suffering from signs and symptoms consistent with an acute exacerbation of COPD.; the basilar changes likely represent atelectasis on CT scan and patient has been afebrile and his white count is not markedly elevated. (3) COPD exacerbation: -on admission, patient given Levaquin and Zosyn empirically and IV methylprednisolone 40 mg IV every 8 -transitioned to azithromycin on 05/10/2019 as per pulmonary service for COPD exacerbation -continue nebulizer treatments -supplementary oxygen to maintain SaO2 of 88 to 92% , currently on 2 liters/min nasal cannula oxygen -prednisone 40 mg daily starting on 05/11/[address] of solumedrol -05/11/2019: Patient reports he is short of breath after walking to the bed to bathroom. On my exam he is not actively wheezing. Have tried to inform patient at this time, he has been transitioned to azithromycin and oral prednisone and that while hospitalist team is titrating his supplementary oxygen use, that it may be possible that patient may continue to have shortness of breath with exertion for some time. Patient also lives alone at home, that if shortness of breath on exertion prevents him from doing activities that patient may benefit from physical therapy rehabilitation center after hospital stay or go to a [facility] facility. Patient declines both of those options. landscaping manager has mentioned possibility of home with home health or home physical therapy services. -a 2 step test is ordered for 05/12/2019 History of Tobacco and ETOH Abuse -has abstained from both since TAVR 04/24/19 -continue to encourage cessation (4) S/P TAVR (transcatheter aortic valve replacement): -Severe aortic stenosis status post TAVR 04/24/[address] Francois prior to this hospitalization at [facility] -echocardiogram 05/10/2019: ejection fraction is 60 to 65% with grade I diastolic dysfunction. No acute valvular complication from TAVR are noted (5) Elevated troponin: -admission Troponin 0.493, No acute EKG change, no chest pain, troponin downtrended to 0.450 and 0.398 -echocardiogram 05/10/2019: ejection fraction is 60 to 65% with grade I diastolic dysfunction. No acute valvular complication from TAVR are noted -troponins likely from recent procedure and demand ischemia from illness -reena plan to transfer from telemetry service to medical chawla (6) Thrombophlebitis of arm, left: -on admission, there was warm of Left dorsal aspect of hand -monitor for now (7) Pseudoaneurysm of femoral artery: -Status post open repair of common femoral artery (BR[employer] CLERK 05/04/2019 [facility] (8) DVT prophylaxis: -Lovenox Subjective Patient reports he is short of breath after walking to the bed to bathroom. On my exam he is not actively wheezing. Have tried to inform patient at this time, he has been transitioned to azithromycin and oral prednisone and that while hospitalist team is titrating his supplementary oxygen use, that it may be possible that patient may continue to have shortness of breath with exertion for some time. Patient also lives alone at home, that if shortness of breath on exertion prevents him from doing activities that patient may benefit from physical therapy rehabilitation center after hospital stay or go to a [facility] facility. Patient declines both of those options. landscaping manager has mentioned possibility of home with home health or home physical therapy services. no chest pain. no headache. no dizziness. no abdominal pain. no nausea. no vomiting. patient does not feel ready to be discharge from the hospital Review of Systems Review of Systems: All systems reviewed & are unremarkable except as noted in HPI & below Physical Exam Constitutional: comfortable Eyes: PERRL, conjunctivae normal, anicteric sclerae EOM intact bilaterally ENMT: external ear and nose normal, oropharynx normal Neck: normal visual inspection Respiratory: normal respiratory effort Cardiovascular: Rate/Rhythm: regular rate Gastrointestinal (Abdomen): normal bowel sounds, soft, nontender, no hepatosplenomegaly Musculoskeletal: Head/Neck/Chest: normocephalic and head atraumatic Neurologic: PERRL, EOMI, accommodation nl, no face palsy, no dysarthria CN's II-XI intact bilaterally Psychiatric: A+Ox3, euthymic affect Results & Data Vital Signs (Past 12 Hours) Vital Signs Temp Pulse Pulse Pulse Resp BP BP 05/11/19 12:00 36.6 C 73 16 128/75 05/11/19 11:12 71 19 05/11/19 08:00 65 05/11/19 06:54 36.4 C L 69 22 127/76 05/11/19 06:51 83 19 05/11/19 03:33 68 16 05/11/19 02:54 36.6 C 75 19 134/70 Pulse Ox 05/11/19 12:00 94 05/11/19 11:12 94 05/11/19 08:00 05/11/19 06:54 94 05/11/19 06:51 94 05/11/19 03:33 98 05/11/19 02:54 98
[2019-05-11] MEDS ORDERED: MIRTAZAPINE TAB 15 MG TAB PO SCH (21:00)
--- NOTE | 2019-05-12 05:41 | Electrocardiogram Report ---
Test Reason : Blood Pressure : / mmHG Vent. Rate : 076 BPM Atrial Rate : 076 BPM P-R Int : 156 ms QRS Dur : 112 ms QT Int : 394 ms P-R-T Axes : 056 038 060 degrees QTc Int : 443 ms Normal sinus rhythm Normal ECG When compared with ECG of 10-MAY-2019 07:09, No significant change was found Confirmed by Daniel Dillon ([id number]) on 05/12/2019 5:40:55 AM Referred By: REFERRED SELF Confirmed By:Daniel Dillon
[2019-05-12] MEDS: ALBUT/IPRATROP 3MG/0.5MG NEB 3 ML VIAL NEB SCH ×4 (06:59→18:36)
[2019-05-12] MEDS ORDERED: ALBUTEROL 0.5% NEB SOLN 2.5 MG/0.5 ML VIAL NEB PRN (07:40)
[2019-05-12 07:49] LABS: Basophils # (auto) 0.03 K/uL (0-0.2); Basophils % (auto) 0.2 %; Eosinophils % (auto) 1.6 %; Hematocrit (blood only) 34.1 % (42-52); Immature Granulocytes # (auto) 0.14 K/uL (0.00-0.02); Immature Granulocytes % (auto) 1.1 %; Lymphocytes # (auto) 3.21 K/uL (1.2-3.4); Lymphocytes % (auto) 26.3 %; Mean Corpuscular Hemoglobin 31.3 pg (25-34); Mean Corpuscular Volume 97.2 fL (80-100); Mean Platelet Volume 8.9 fL (7.4-10.4); Monocytes % (auto) 8.2 %; Neutrophils # (auto) 7.64 K/uL (1.4-6.5); Neutrophils % (auto) 62.6 %; Platelet Count 512 K/uL (130-400); RDW Coefficient of Variation 13.2 % (11.5-14.5); RDW Standard Deviation 46.3 fL (36.4-46.3); Red Blood Count 3.51 M/uL (4.7-6.1); White Blood Count 12.22 K/uL (4.8-10.8)
[2019-05-12 07:50] LABS: Mean Corpuscular Hgb Conc 32.3 g/dL (32-36)
[2019-05-12 08:05] LABS: Albumin Level 3.1 gm/dl (3.4-5.0); BUN Creatinine Ratio 20.2 (10-20); Calcium 8.9 mg/dl (8.5-10.1); Creatinine Clr Calc Pharmacy 80.6 ml/min; Est GFR (African American) 105.1; Est GFR (Non-African American) 90.7; Magnesium 2.5 mg/dl (1.8-2.4); Potassium 3.8 mmol/L (3.5-5.1)
[2019-05-12 08:08] LABS: Albumin Globulin Ratio 0.8 (0.9-2); Bilirubin,Total 0.1 mg/dl (0.2-1); Globulin 3.8 gm/dl (2.5-4.0); Phosphorus 2.9 mg/dl (2.5-4.9); Total Protein 6.9 gm/dl (6.4-8.2)
[2019-05-12] MEDS: FLUTICASONE FUROATE 100MCG 14 PUFFS/INHALER INH SCH (08:12)
[2019-05-12] MEDS: CLOPIDOGREL BISULFATE 75 MG TAB PO SCH (08:13)
[2019-05-12] MEDS: predniSONE 20 MG TAB PO SCH (08:13)
[2019-05-12] MEDS: ASPIRIN 81 MG ECTAB PO SCH (08:13)
[2019-05-12] MEDS: PANTOprazole 40 MG TAB PO SCH (08:13)
[2019-05-12] MEDS: UMECLIDINIUM/VILANTEROL 62.5/25MCG 7 PUFFS/INHALER INH SCH (08:13)
[2019-05-12] MEDS: AZITHROMYCIN 250 MG TAB PO SCH (08:13)
[2019-05-12] MEDS: MULTIVITAMIN TAB PO SCH (08:13)
[2019-05-12] MEDS: ENOXAPARIN INJ 40 MG/0.4 ML SYR SQ SCH (08:14)
--- NOTE | 2019-05-12 12:59 | Pulmonology Progress Note ---
Date of Service May 12, 2019 Assessment & Plan (1) HCAP (healthcare-associated pneumonia): Impression: 74-year-old male with advanced obstructive lung disease admitted with shortness of breath and questionable basilar airspace opacity. He is improving clinically. Recommendations: 1. COPD: Continue triple therapy currently. The patient can be discharged on his outpatient Trelegy which he was achieving significant benefit with. Can continue to use rescue nebulizers as needed. Would keep him on prednisone 40 mg a day for the next 3 or 4 days then decrease by 5 mg every other day until he is down to his baseline of 10 mg a day. At that point time we can see him back in pulmonary clinic and work on a taper to off over the next several months. Chronic azithromycin therapy may be beneficial as well. 2. Questionable pneumonia: The patient appears improved on current antibiotics. Continue oral azithromycin and second-generation cephalosporin for 5 to 7 days. 3. Hypoxemia: Appears resolved currently. 4. History of TAVR for severe aortic stenosis. Following through [facility]. He also had a pseudoaneurysm repaired which will require additional pulmonary follow-up. I would be happy to see this patient back in clinic or he can follow-up with nurse practitioner Glendy. Please contact us if we can be of additional assistance. We will not plan on seeing over the weekend unless called. (2) SOB (shortness of breath): (3) Chronic respiratory failure with hypoxia: (4) COPD exacerbation: Subjective Patient feels much better today. He is coughing less. Wheezing is resolved. He is been ambulating without any oxygen. Review of Systems Review of Systems: Unchanged from prior Physical Exam Constitutional: + cachectic and + frail appearing Neck: trachea midline, no thyromegaly Respiratory: normal respiratory effort; no respiratory distress Diminished breath sounds bilaterally Cardiovascular: RRR, no murmur, no edema Gastrointestinal (Abdomen): normal bowel sounds, soft, nontender, no hepat osplenomegaly Musculoskeletal: Extremities: extremities normal to inspection Skin: no rashes, warm and dry Neurologic: Nonfocal exam Lymphatic: no cervical lymphadenopathy Results & Data Vital Signs (Past 12 Hours) Vital Signs Temp Pulse Pulse Pulse Pulse Pulse Resp 05/12/19 11:27 74 16 05/12/19 07:41 93 H 80 72 05/12/19 07:03 71 20 05/12/19 06:55 36.4 C L 65 16 05/12/19 01:26 Resp Resp Resp BP Pulse Ox Pulse Ox Pulse Ox 05/12/19 11:27 94 05/12/19 07:41 20 20 20 91 94 05/12/19 07:03 97 05/12/19 06:55 130/75 100 05/12/19 01:26 96 Pulse Ox 05/12/19 11:27 05/12/19 07:41 93 05/12/19 07:03 05/12/19 06:55 05/12/19 01:26 Laboratory Results 05/12/19 07:37 05/12/19 07:37 Diagnostic Findings No new imaging PG Care Time/CCT Total # of Minutes Spent Total Time Spent with Patient: Total time spent is greater than 50% in coordin ation of care (as documented) at patient's floor/unit and/or counseling patient: Coding Level of Care Code 93395 Subseq Hosp Care Lvl 2 Diagnoses HCAP (healthcare-associated pneumonia) J18.9 SOB (shortness of breath) R06.02 Chronic respiratory failure with hypoxia J96.11 COPD exacerbation J44.1
[2019-05-12] MEDS ORDERED: cefUROXime axetil 500 MG TAB PO SCH (14:00)
--- NOTE | 2019-05-12 14:21 | Hospitalist Progress Note ---
Date of Service May 12, 2019 Assessment & Plan (1) Chronic respiratory failure with hypoxia: -Mr. 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 (Patient presents with acute shortness of breath that has progressed since discharge from [facility] 05/05/2019) -chronic oxygen supplementation, around 4 L/min as per patient at home -a 2 step test is ordered for 05/12/2019 patient had 2 step oxygen testing and patient did not require additional oxygen supplementation on room air or with ambulation (2) HCAP (healthcare-associated pneumonia): -admission CHEST CTA ordered: Negative for PE, but bibasilar patchy infiltrative changes -admission WBC 11,000 with history of recent stopping of respiratory steroids -pneumonia initially suspected but as per pulmonary service, patient appears to be suffering from signs and symptoms consistent with an acute exacerbation of COPD.; the basilar changes likely represent atelectasis on CT scan and patient has been afebrile and his white count is not markedly elevated. (3) COPD exacerbation: -on admission, patient given Levaquin and Zosyn empirically and IV methylprednisolone 40 mg IV every 8 -transitioned to azithromycin on 05/10/2019 as per pulmonary service for COPD exacerbation -continue nebulizer treatments -supplementary oxygen to maintain SaO2 of 88 to 92% , currently on 2 liters/min nasal cannula oxygen -prednisone 40 mg daily starting on 05/11/[address] solumedrol -05/11/2019: Patient reports he is short of breath after walking to the bed to bathroom. On my exam he is not actively wheezing. Have tried to inform patient at this time, he has been transitioned to azithromycin and oral prednisone and that while hospitalist team is titrating his supplementary oxygen use, that it may be possible that patient may continue to have shortness of breath with exertion for some time. Patient also lives alone at home, that if shortness of breath on exertion prevents him from doing activities that patient may benefit from physical therapy rehabilitation center after hospital stay or go to a half-way facility. Patient declines both of those options. kosher dietary service manager has mentioned possibility of home with home health or home physical therapy services. -discharge medication sent electronically [facility] [address] [place] [address] [place] [id number] Continue oral azithromycin 250 mg daily and second-generation cephalosporin of cefuroxime as 500 mg twice a day for 7 days. prednisone 40 mg a day for the next 4 days then decrease by 5 mg every other day until he is down to his baseline of 10 mg a day The patient can be discharged on his outpatient Trelegy which he was achieving significant benefit with. Can continue to use rescue nebulizers as needed. Patient should follow up with [facility] pulmonary clinic and work on a prednisone taper off over the next several months. (Patient advised to make an appointment time sooner rather than later) upcoming scheduled appointments 05/15/2019 5:40 PM Provider Jose Dean MD Department Internal Medicine [facility] 05/16/2019 3:30 PM Provider Barbara Burton RN Department [facility] 05/24/2019 8:15 AM Provider Stand Up Forklift Operator 2 Department Cardiac Studies, [facility] (patient already had echocardiogram in [facility] on 05/10/2019 so this appointment may not be needed) 05/24/2019 10:20 AM Provider Keagan Kee MD Department Vascular Surg saima, [facility] 05/24/2019 11:30 AM Provider Topher Francois MD Department Cardiology, [facility] 07/25/2019 9:20 AM Provider Jose Dean MD Department Internal Medicine [facility] History of Tobacco and ETOH Abuse -has abstained from both since TAVR 04/24/19 -continue to encourage cessation (4) S/P TAVR (transcatheter aortic valve replacement): -Severe aortic stenosis status post TAVR 04/24/[address] Francois prior to this hospitalization at [facility] -echocardiogram 05/10/2019: ejection fraction is 60 to 65% with grade I diastolic dysfunction. No acute valvular complication from TAVR are noted (5) Elevated troponin: -admission Troponin 0.493, No acute EKG change, no chest pain, troponin downtrended to 0.450 and 0.398 -echocardiogram 05/10/2019: ejection fraction is 60 to 65% with grade I diastolic dysfunction. 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 patient consistently breathing on room air on exams by medical doctor. speaks in full sentences. no acute distress. no chest pain. no wheezing on lung exam. no abdominal pain. no vomiting. no nausea. no dizziness. no lightheadedness. discharge plans and pulmonary recommendations discussed at length Review of Systems Review of Systems: All systems reviewed & are unremarkable except as noted in HPI & below Physical Exam Constitutional: comfortable Eyes: PERRL, conjunctivae normal, anicteric sclerae EOM intact bilaterally ENMT: external ear and nose normal, oropharynx normal Neck: normal visual inspection Respiratory: normal respiratory effort Cardiovascular: Rate/Rhythm: regular rate Gastrointestinal (Abdomen): normal bowel sounds, soft, nontender, no hepatosplenomegaly Musculoskeletal: Head/Neck/Chest: normocephalic and head atraumatic Neurologic: PERRL, EOMI, accommodation nl, no face palsy, no dysarthria CN's II-XI intact bilaterally Psychiatric: A+Ox3, euthymic affect Results & Data Vital Signs (Past 12 Hours) Vital Signs Temp Pulse Pulse Pulse Pulse Pulse Resp 05/12/19 11:27 74 16 05/12/19 07:41 93 H 80 72 05/12/19 07:03 71 20 05/12/19 06:55 36.4 C L 65 16 Resp Resp Resp BP Pulse Ox Pulse Ox Pulse Ox 05/12/19 11:27 94 05/12/19 07:41 20 20 20 91 94 05/12/19 07:03 97 05/12/19 06:55 130/75 100 Pulse Ox 05/12/19 11:27 05/12/19 07:41 93 05/12/19 07:03 05/12/19 06:55
--- NOTE | 2019-05-12 14:26 | Discharge Summary ---
Date of Service May 12, 2019 Admission HPI Per Admitting Provider Mr. Redding is a 74-year-old male who has significant PMH for chronic hypoxic respiratory failure on 4 L of O2, COPD, CAD, severe aortic stenosis status post TAVR on 04/25/2019, right [employer] pseudoaneurysm status post repair 05/04/2019, history of tobacco abuse, history of alcohol abuse who presents to ED secondary to worsening shortness of breath x2 to 3 days. Of significance patient recently hospitalized at [facility] on 04/25/2019 secondary to TAVR by Dr. Francois. He tolerated procedure well and was initiated on Plavix 75 mg daily for 3 months and discharged home. Subsequently patient was rehospitalized on 05/04/2019 secondary to right [employer] pseudoaneurysm status post repair. He tolerated procedure well and was discharged to home. At discharge he did have elevated temp 38.2. Urinalysis, urine culture and chest x-ray negative for infectious process. He was discharged to home on 05/05/2019. He was seen and evaluated today by [facility] at home Dr. Huston. Per her note there was complaints of worsening shortness of breath, wheezing and cough for few days. It was felt symptoms likely secondary to COPD exacerbation as he was euvolemic. She was recommending starting on oral doxycycline and prednisone. According to patient his shortness of breath started this morning. "I just cannot catch my breath." He is chronically on 4 L of oxygen at home. Further complains of cough that started tonight but is nonproductive. Complains of subjective fever, chills and sweats, substernal chest pressure. Chest pressure is nonradiating and described as a heaviness. He denies any dizziness, lightheadedness, syncope, hemoptysis, palpitations, nausea, vomiting, abdominal pain, change in bowel or urinary habits, melena, hematochezia. Overall decreased appetite today. Lastly complains of pain and redness to posterior aspect of left hand where IV site was in place during hospitalization. Overall feels pain is improving but describes as being, "very hard." He does elicit that he has not been taking his oral prednisone. [facility] which tapering down his prednisone was discussed. It was recommended to titrate from 10 mg to 5 mg, but patient altogether discontinued. He does admit he has been compliant with his Trelegy as well as aspirin and Plavix. Multiple family members at bedside. In ED initial work-up revealed a WBC 11.06, H&H 10.8 and 32.9, platelet 436, BUN 8, creatinine 0.58, troponin 0.493, proBNP WNL, influenza negative. EKG revealed normal sinus rhythm at 70 bpm with occasional PACs, no ST or T wave changes. Chest x-ray revealed no acute abnormality but notable emphysema. He received IV Solu-Medrol 125 mg in hour-long albuterol nebulizer treatment. He continues to be oxygen saturations on 4 L via NC, but complains of no improvement in his symptoms. Admission Exam Per Admitting Provider Constitutional: Elderly, M, unkempt, WD/WN, vitals as above, NAD, sitting up in bed, pleasant, conversing easily Head: Normocephalic, Atraumatic Eyes: PERRL, conjunctivae normal, anicteric sclerae ENMT: external ear and nose normal, oropharynx normal Neck: trachea midline, no thyromegaly normal visual inspection Respiratory: on 4L of O2 via NC, normal respiratory effort, diminished breath sounds at bases/distant, insp and exp wheeze noted throughout, no rales, rhonchi . Normal insp/exp effort, no accessory muscle use Cardiovascular: RRR, no murmur auscultated, no rubs, no edema. Left dorsal hand with firm and erythematous lesion likely thrombophlebitis, no warmth or tenderness to palpation. vessels: no JVD or carotid bruit Chest: normal inspection of chest Abdomen: normal bowel sounds, soft, nontender, no hepatosplenomegaly Musculoskeletal: no cyanosis or clubbing, Skin: no rashes, warm and dry normal turgor, right inguinal incision clean dry and intact; however inferior aspect of incision mildly open, no drainage Neurologic: PERRL, EOMI, accommodation nl, no face palsy, no dysarthria CN's II-XI intact bilaterally and moves all extremities Psychiatric: A+Ox3, euthymic affect Lymphatic: no cervical or axillary lymphadenopathy : deferred Principal Diagnosis Chronic respiratory failure with hypoxia, COPD exacerbation, Hospital Acquired Pneumonia was initially suspected but is ruled out, S/P TAVR (transcatheter aortic valve replacement), Elevated troponin, Thrombophlebitis of left arm Discharge Exam Constitutional comfortable Eyes PERRL, conjunctivae normal, anicteric sclerae EOM intact bilaterally ENMT external ear and nose normal, oropharynx normal Neck normal visual inspection Respiratory normal respiratory effort Cardiovascular Rate/Rhythm: regular rate Gastrointestinal (Abdomen) normal bowel sounds, soft, nontender, no hepatosplenomegaly Musculoskeletal Head/Neck/Chest: normocephalic and head atraumatic Neurologic PERRL, EOMI, accommodation nl, no face palsy, no dysarthria CN's II-XI intact bilaterally Psychiatric A+Ox3, euthymic affect Discharge Data Allergies Allergy/AdvReac Type Severity Reaction Status Date / Time No Known Allergies Allergy Verified 05/09/19 18:37 Consultations 05/09/19 19:46 ED Decision to Admit Stat 05/09/19 21:43 Consult Case Management - Discharge Planning Routine Consult Pulmonology Routine Ordered Studies 05/09/19 20:36 CT angio chest PE protocol Stat 05/09/19 20:49 US point of care ultrasound Stat Hospital Course (1) Chronic respiratory failure with hypoxia: -Mr. Redding is a 74-year-old male who has significant PMH for chronic hypoxic respiratory failure on 4 L of O2, COPD, CAD, severe aortic stenosis status post TAVR on 04/25/2019, right [employer] pseudoaneurysm status post repair 05/04/2019, history of tobacco abuse, history of alcohol abuse who presents to ED secondary to worsening shortness of breath x 2 to 3 days. (Patient presents with acute shortness of breath that has progressed since discharge from [facility] 05/05/2019) -chronic oxygen supplementation, around 4 L/min as per patient at home -a 2 step test is ordered for 05/12/2019 patient had 2 step oxygen testing and patient did not require additional oxygen supplementation on room air or with ambulation (2) HCAP (healthcare-associated pneumonia): -admission CHEST CTA ordered: Negative for PE, but bibasilar patchy infiltrative changes -admission WBC 11,000 with history of recent stopping of respiratory steroids -pneumonia initially suspected but as per pulmonary service, patient appears to be suffering from signs and symptoms consistent with an acute exacerbation of COPD.; the basilar changes likely represent atelectasis on CT scan and patient has been afebrile and his white count is not markedly elevated. (3) COPD exacerbation: -on admission, patient given Levaquin and Zosyn empirically and IV methylprednisolone 40 mg IV every 8 -transitioned to azithromycin on 05/10/2019 as per pulmonary service for COPD exacerbation -continue nebulizer treatments -supplementary oxygen to maintain SaO2 of 88 to 92% , currently on 2 liters/min nasal cannula oxygen -prednisone 40 mg daily starting on 05/11/[address] solumedrol -05/11/2019: Patient reports he is short of breath after walking to the bed to bathroom. On my exam he is not actively wheezing. Have tried to inform patient at this time, he has been transitioned to azithromycin and oral prednisone and that while hospitalist team is titrating his supplementary oxygen use, that it m ay be possible that patient may continue to have shortness of breath with exertion for some time. Patient also lives alone at home, that if shortness of breath on exertion prevents him from doing activities that patient may benefit from physical therapy rehabilitation center after hospital stay or go to a halfway facility. Patient declines both of those options. flow manager has mentioned possibility of home with home health or home physical therapy services. -discharge medication sent electronically [facility] [address] [place] [address] [place] [address] Continue oral azithromycin 250 mg daily and second-generation cephalosporin of cefuroxime as 500 mg twice a day for 7 days. prednisone 40 mg a day for the next 4 days then decrease by 5 mg every other day until he is down to his baseline of 10 mg a day The patient can be discharged on his outpatient Trelegy which he was achieving significant benefit with. Can continue to use rescue nebulizers as needed. Patient should follow up with [facility] pulmonary clinic and work on a prednisone taper off over the next several months. (Patient advised to make an appointment time sooner rather than later) upcoming scheduled appointments 05/15/2019 5:40 PM Provider Jose Dean MD Department Internal Medicine [facility] 05/16/2019 3:30 PM Provider Barbara Burton RN Department [facility] 05/24/2019 8:15 AM Provider Siphon Operator 2 Department Cardiac Studies, [facility] (patient already had echocardiogram in [facility] on 05/10/2019 so this appointment may not be needed) 05/24/2019 10:20 AM Provider Keagan Kee MD Department Vascular Surgery, [facility] 05/24/2019 11:30 AM Provider Topher Francois MD Department Cardiology, [facility] 07/25/2019 9:20 AM Provider Jose Dean MD Department Internal Medicine [facility] History of Tobacco and ETOH Abuse -has abstained from both since TAVR 04/24/19 -continue to encourage cessation (4) S/P TAVR (transcatheter aortic valve replacement): -Severe aortic stenosis status post TAVR 04/24/[address] Francois prior to this hospitalization at [facility] -echocardiogram 05/10/2019: ejection fraction is 60 to 65% with grade I diastolic dysfunction. No acute valvular complication from TAVR are noted (5) Elevated troponin: -admission Troponin 0.493, No acute EKG change, no chest pain, troponin downtrended to 0.450 and 0.398 -echocardiogram 05/10/2019: ejection fraction is 60 to 65% with grade I diastolic dysfunction. No acute valvular complication from TAVR are noted -troponins likely from recent procedure and demand ischemia from illness -reena plan to transfer from telemetry service to medical chawla (6) Thrombophlebitis of arm, left: -on admission, there was warm of Left dorsal aspect of hand -resolved (7) Pseudoaneurysm of femoral artery: -Status post open repair of common femoral artery ([employer]NEY) 05/04/2019 [facility] (8) DVT prophylaxis: -Lovenox while in patient Discharge Diagnosis Chronic respiratory failure with hypoxia, COPD exacerbation, Hospital Acquired Pneumonia was initially suspected but is ruled out, S/P TAVR (transcatheter aortic valve replacement), Elevated troponin, Thrombophlebitis of left arm Total Time Total Time Spent Total Time Spent (In Minutes): 40 minutes Total Time Includes: Examination of the Patient, Discharge Planning, Medication Reconciliation and Communication With Other Providers Discharge Plan Discharge Items Patient Disposition: Home - Self-Care Reason For Visit: SOPD EXAC, ELEVATED TROPONIN, CHRONIC RESP FAILURE Discharge Diagnosis: Chronic respiratory failure with hypoxia, COPD exacerbation, Hospital Acquired Pneumonia was initially suspected but is ruled out, S/P TAVR (transcatheter aortic valve replacement), Elevated troponin, Thrombophlebitis of left arm Condition on Discharge: Good Activity: Resume your previous activity Non-emergency contact: Primary Care Provider and Agricultural Adviser Call non-emergency contact if: you have any medication questions Follow-up/Referrals: Jose Dean MD [Primary Care Provider] - Diet: Heart Healthy Addtl Attending Provider Instructions: patient had 2 step oxygen testing and patient did not require additional oxygen supplementation on room air or with ambulation discharge medication sent electronically [facility] [address] [place] [address] [place] [address] Continue oral azithromycin 250 mg daily and second-generation cephalosporin of cefuroxime as 500 mg twice a day for 7 days. prednisone 40 mg a day for the next 4 days then decrease by 5 mg every other day until he is down to his baseline of 10 mg a day The patient can be discharged on his outpatient Trelegy which he was achieving significant benefit with. Can continue to use rescue nebulizers as needed. Patient should follow up with [facility] pulmonary clinic and work on a prednisone taper off over the next several months. (Patient advised to make an appointment time sooner rather than later) upcoming scheduled appointments 05/15/2019 5:40 PM Provider Jose Dean MD Department Internal Medicine [facility] 05/16/2019 3:30 PM Provider Barbara Burton RN Department [facility] 05/24/2019 8:15 AM Provider Siphon Operator 2 Department Cardiac Studies, [facility] (patient already had echocardiogram in [facility] on 05/10/2019 so this appointment may not be needed) 05/24/2019 10:20 AM Provider Keagan Kee MD Department Vascular Surgery, [facility] 05/24/2019 11:30 AM Provider Topher Francois MD Department Cardiology, [facility] 07/25/2019 9:20 AM Provider Jose Dean MD Department Internal Medicine [facility] Pending Studies at Discharge: No Stand-Alone Forms: My [facility], Smoking Cessation Medications and DC Order Prescriptions: New azithromycin [Zithromax] 250 mg Tablet 250 mg PO QAM 7 Days Qty: 7 RF: 0 cefuroxime axetil 500 mg Tablet 500 mg PO Q12H 7 Days Qty: 14 RF: 0 prednisone 10 mg tablet 40 mg PO UD 14 Days Qty: 41 RF: 0 Continued albuterol sulfate 2.5 mg /3 mL (0.083 %) solution for nebulization 2.5 mg Inhalation Q4H PRN (Reason: Wheezing) Qty: 360 RF: 4 multivitamin Tablet 1 tab PO DAILY RF: 0 aspirin [Aspirin Low Dose] 81 mg Tablet,Delayed Release (Dr/Ec) 81 mg PO DAILY RF: 0 albuterol sulfate 90 mcg/actuation HFA aerosol inhaler 2 puff Inhalation Q4H PRN (Reason: Shortness Of Breath) RF: 0 pantoprazole [Protonix] 40 mg Tablet,Delayed Release (Dr/Ec) 40 mg PO QAM RF: 0 mirtazapine [Remeron] 15 mg Tablet 30 mg PO HS RF: 0 oxycodone-acetaminophen [Percocet] 5-325 mg Tablet 1 tab PO Q6H PRN (Reason: Pain) RF: 0 Trelegy Ellipta 100-62.5-25 mcg blister with device 1 inh INHALATION DAILY RF: 0 clopidogrel [Plavix] 75 mg Tablet 75 mg PO DAILY RF: 0 Discontinued amoxicillin 500 mg capsule 2,000 mg PO ONCE PRN (Reason: PRIOR TO DENTAL VISITS) RF: 0 prednisone 10 mg Tablet 0 mg PO DAILY PRN (Reason: RESCUE KIT) RF: 0 prednisone 10 mg Tablet 10 mg PO DAILY RF: 0 doxycycline hyclate 100 mg Tablet 100 mg PO BID PRN (Reason: RESCUE KIT) RF: 0 Discharge Orders: Discharge Order (Routine); Ordered 05/12/19 Ordered By: Addison Drake Admission Data Admit Date/Time: 05/09/19 20:53 Attending Provider: Addison Drake Admit Provider: Chemo Amaya Primary Care Provider: Jose Dean Other Providers: Josemanuel Arteaga ; Nghia Boyer
[2019-05-12 15:46] VITALS: TEMP 97.9
[2019-05-12 17:54] VITALS: BP 128/75
[2019-05-12 18:39] VITALS: PULSE 81; O2SAT 93
== END 2019-05-12 19:00 | disposition home health service (06) | DRG 191 ==
LOC: ED 17:12 → 2S 20:53 → SUATTDRO 20:53 → 2S 21:15 → 3W 05-11 14:55